=== PATIENT | male | born 1995 | race Caucasian/White ===

== ENCOUNTER 2017-12-19 03:39 | Inpatient (IN) | payer BC ==
[2017-12-19] VITALS (11 sets, daily range): BP systolic 137–164; BP diastolic 74–102; PULSE 92–118; TEMP 36.8–37; O2SAT 94–98; Ht 180.3 cm; Wt 100.0 kg
[~2017-12-19] VITALS: Ht 180.3 cm; Wt 100.0 kg
[2017-12-19] MEDS ORDERED: LORAZEPAM 2 MG/ML 1 ML VIAL IM STA (03:42)
[2017-12-19] MEDS ORDERED: HALOPERIDOL LACTATE 5 MG/ML 1 ML VIAL IM STA (03:42)
[2017-12-19] MEDS ORDERED: HALOPERIDOL LACTATE 5 MG/ML 1 ML VIAL ONE (03:44)
[2017-12-19] MEDS ORDERED: LORAZEPAM 2 MG/ML 1 ML VIAL ONE (03:44)
--- NOTE | 2017-12-19 03:57 | EMERGENCY ROOM VISIT NOTE ---
History Report prepared by Louis: Quinn Wong Under the Supervision of: Dr. Mayra Zavala M.D. First contact with patient: 03:43 Chief Complaint: OVERDOSE (INTENTIONAL) Stated Complaint: DRUNK AND TOOK SLEEPING PILLS History of Present Illness The patient is a 22 year old male who presents to the Emergency Room with complaints of an episode of intentional overdose occurring tonight. Per friends , the patient was brought to the emergency department tonight. They note that the patient became upset tonight and started drinking. They report that the patient took at least 6 shots. They state that the patient then ingested about half of his amitriptyline pills and a small amount of DayQuil. They note that the patient has been saying that he has "wanted to " for the last few weeks. They report that the patient has been talking this way for a while now, but never to this extent. Per EMS, the patient was also bleeding out of his mouth. He states that the friends are unsure if the patient fell tonight. HPI limited secondary to alcohol intoxication. Source of History: friend, EMS History Limited By: intoxication (alcohol intoxication) Onset: tonight Position: other (global) Quality: other (intentional overdose) Timing: other (an episode) Note: Per EMS, the patient is bleeding from his mouth. Review of Systems ROS limited secondary to alcohol intoxication. Past Medical & Surgical Medical Problems: (1) Alcohol dependence (2) Cannabis abuse (3) Generalized anxiety disorder (4) Major depressive disorder (5) No active medical conditions (6) No chronic problems (7) Suicide attempt by other psychotropic drug overdose (8) TCA (tricyclic antidepressant) overdose of undetermined intent Family History No pertinent family history stated. Social History Drug Use: marijuana Marital Status: single Housing Status: lives with roommate Occupation Status: [employer] student Current/Historical Medications No Active Prescriptions or Reported Meds Allergies Coded Allergies: No Known Allergies (Unverified , 12/19/17) Physical Exam Vital Signs Date Time Temp Pulse Resp B/P (MAP) Pulse Ox O2 Delivery O2 Flow Rate FiO2 12/19/17 08:56 102 16 150/85 94 Room Air 12/19/17 07:39 97 Room Air 12/19/17 07:25 118 20 162/68 97 Room Air 12/19/17 06:35 104 18 159/93 95 Room Air 12/19/17 05:53 108 18 158/71 95 Room Air 12/19/17 05:38 113 12/19/17 05:28 153 12/19/17 05:27 163 12/19/17 05:25 148 12/19/17 05:21 169 12/19/17 05:00 36.6 113 18 140/73 90 Room Air 12/19/17 04:43 113 12/19/17 04:24 116 18 132/74 92 Room Air 12/19/17 03:51 138 12/19/17 03:50 95 Room Air 12/19/17 03:48 36.6 152 32 155/83 95 Room Air Physical Exam Vital signs reviewed. General: Well-appearing male, in no significant distress. Significantly intoxicated, thrashing, restrained by security, non-verbal. HEENT: No scleral icterus, PERRLA, neck supple. Atraumatic. Cardiovascular: Regular rhythm and tachycardic, no extra sounds. Pulmonary: Clear to auscultation bilaterally, normal work of breathing. Abdomen: Soft, nontender, nondistended, positive bowel sounds. Musculoskeletal: Atraumatic, no peripheral edema. Neurologic: Patient agitated but non-verbal. He is moving all extremities equally but restrained due to combative behavior. Skin: Warm, dry, no rash Medical Decision & Procedures Laboratory Results 12/19/17 04:05 Red Blood Count 5.57, Mean Corpuscular Volume 84.0, Mean Corpuscular Hemoglobin 29.4, Mean Corpuscular Hemoglobin Concent 35.0, Mean Platelet Volume 9.4, Neutrophils (%) (Auto) 59.9, Lymphocytes (%) (Auto) 29.4, Monocytes (%) (Auto) 5.3, Eosinophils (%) (Auto) 1.7, Basophils (%) (Auto) 1.0, Neutrophils # (Auto) 6.69, Lymphocytes # (Auto) 3.28, Monocytes # (Auto) 0.59, Eosinophils # (Auto) 0.19, Basophils # (Auto) 0.11 Test 12/19/17 04:05 White Blood Count 11.16 K/uL (4.8-10.8) Red Blood Count 5.57 M/uL (4.7-6.1) Hemoglobin 16.4 g/dL (14.0-18.0) Hematocrit 46.8 % (42-52) Mean Corpuscular Volume 84.0 fL (80-100) Mean Corpuscular Hemoglobin 29.4 pg (25-34) Mean Corpuscular Hemoglobin Concent 35.0 g/dl (32-36) Platelet Count 256 K/uL (130-400) Mean Platelet Volume 9.4 fL (7.4-10.4) Neutrophils (%) (Auto) 59.9 % Lymphocytes (%) (Auto) 29.4 % Monocytes (%) (Auto) 5.3 % Eosinophils (%) (Auto) 1.7 % Basophils (%) (Auto) 1.0 % Neutrophils # (Auto) 6.69 K/uL (1.4-6.5) Lymphocytes # (Auto) 3.28 K/uL (1.2-3.4) Monocytes # (Auto) 0.59 K/uL (0.11-0.59) Eosinophils # (Auto) 0.19 K/uL (0-0.5) Basophils # (Auto) 0.11 K/uL (0-0.2) RDW Standard Deviation 38.7 fL (36.4-46.3) RDW Coefficient of Variation 12.9 % (11.5-14.5) Immature Granulocyte % (Auto) 2.7 % Immature Granulocyte # (Auto) 0.30 K/uL (0.00-0.02) Urine Color YELLOW Urine Appearance CLEAR (CLEAR) Urine pH 5.0 (4.5-7.5) Urine Specific Merkel 1.020 (1.000-1.030) Urine Protein NEG (NEG) Urine Glucose (UA) NEG (NEG) Urine Ketones NEG (NEG) Urine Occult Blood 3+ (NEG) Urine Nitrite NEG (NEG) Urine Bilirubin NEG (NEG) Urine Urobilinogen NEG (NEG) Urine Leukocyte Esterase NEG (NEG) Urine WBC (Auto) 1-5 /hpf (0-5) Urine RBC (Auto) >30 /hpf (0-4) Urine Hyaline Casts (Auto) 0 /lpf (0-5) Urine Epithelial Cells (Auto) >30 /lpf (0-5) Urine Bacteria (Auto) NEG (NEG) Urine Renal Epithelial Cells /lpf (0-5) Urine Pathogenic Casts /lpf (0) Direct Bilirubin 0.1 mg/dl (0-0.2) Lipase 157 U/L (73-393) Thyroid Stimulating Hormone (TSH) 3.090 uIu/ml (0.300-4.500) Salicylates Level 1.7 mg/dl (2.8-20) Urine Opiates Screen NEG (NEG) Urine Methadone, Qualitative NEG (NEG) Acetaminophen Level < 2 ug/ml (10-30) Urine Barbiturates NEG (NEG) Urine Phencyclidine (PCP) Level NEG (NEG) Ur Amphetamine/Methamphetamine NEG (NEG) MDMA (Ecstasy) Screen NEG (NEG) Urine Benzodiazepines Screen NEG (NEG) Urine Cocaine Metabolite NEG (NEG) Urine Marijuana (THC) POS (NEG) Ethyl Alcohol mg/dL 102.0 mg/dl (0-3) Laboratory results per my review. Medications Administered Medications (Trade) Dose Ordered Sig/Cristian Route Start Time Stop Time Status Last Admin Dose Admin Haloperidol Lactate (Haldol Inj) 10 mg NOW STAT IM 12/19/17 03:42 12/19/17 03:44 DC 12/19/17 03:43 10 MG Lorazepam (Ativan Inj) 2 mg NOW STAT IM 12/19/17 03:42 12/19/17 03:44 DC 12/19/17 03:43 2 MG Sodium Chloride 1,000 ml @ 999 mls/hr Q1H1M STAT IV 12/19/17 03:58 12/19/17 04:58 DC 12/19/17 03:58 999 MLS/HR ECG Per My Interpretation Indication: toxicologic Rate (beats per minute): 122 Rhythm: sinus tachycardia Findings: no ectopy, other (Poor quality baseline for interpretation, QTC 456) Change: EKG #2: Sinus tachycardia, 150, short FL, QTC 537, poor quality baseline for interpretation, no ectopy. ED Course 0342: Ativan Inj 2mg IM, Haldol Inj 10mg IM 0344: Past medical records reviewed. The patient was evaluated in room B3. A complete history and physical examination was performed. 0358: Sodium Chloride 1000 ml @ 999 mls/hr IV 0535: I called out for poison control. 0621: I spoke to the patient's family. Per mom, the patient is reportedly on Ativan and sertraline. 0700: Upon reevaluation, the patient is resting comfortably. I discussed laboratory and radiographic results with his family. They verbalized agreement of the treatment plan. Discussed the patient's case with MULU Pugh. The patient will be evaluated for further management and care. Medical Decision Differential diagnosis: Etiologies such as mood disorder, infection, hypoglycemia, electrolyte abnormalities, cardiac sources, intracerebral event, toxicologic, neurologic, as well as others were entertained. This pt was evaluated and appeared to be aggressive, combative and restrained by security. He was non-verbal, but not cooperative. He was sedated with IM haldol and ativan. Restraints were applied. Friends arrived in the ED and stated that the pt had a night of drinking, became upset about a situation earlier today with a [employer] committee. He ran into his room and locked the door. Later friends discovered he had taken "half a bottle of amitriptyline." IVF were initiated. Poison control was contacted. Initial EKG reveals no acute abnl. Second EKG reveals a prolonged QT interval, but QRS remains narrow. Parents arrived and case was discussed. Mother was tearful. The hospitalist service was contacted. A 302 petition was filed by me, until the pt can be evaluated by . Medication Reconcilliation Current Medication List: was personally reviewed by me Blood Pressure Screening Patient's blood pressure: Elevated blood pressure Blood pressure disposition: Elevated BP felt to be situational Consults Time Called: 0641 Consulting Physician: MUUL Pugh Returned Call: 0700 I reviewed the patient's case with Dr. To. She will evaluate the patient for further management. Impression Primary Impression: TCA (tricyclic antidepressant) overdose of undetermined intent Additional Impression: Alcohol intoxication Critical Care I have personally spent greater than 35 minutes of critical care time in the direct management of this patient. This includes bedside care, interpretation of diagnostic studies, and testing, discussion with consultants, patient, and family members, and other required patient management activities. This 35 minutes is in excess of all separately billable procedures. Scribe Attestation The scribe's documentation has been prepared under my direction and personally reviewed by me in its entirety. I confirm that the note above accurately reflects all work, treatment, procedures, and medical decision making performed by me. Departure Information Dispostion Being Evaluated By Hospitalist Prescriptions No Active Prescriptions or Reported Meds Referrals No Doctor, Assigned (PCP) Patient Instructions [facility] Problem Qualifiers
[2017-12-19] MEDS ORDERED: SODIUM CHLORIDE 0.9% 1000ML 1,000 ML IV STA (03:58)
[2017-12-19 04:14] LABS: BASO ABS # 0.11 K/uL (0-0.2); EOS % 1.7 %; EOS ABS # 0.19 K/uL (0-0.5); HEMATOCRIT 46.8 % (42-52); HEMOGLOBIN 16.4 g/dL (14.0-18.0); LYMPH % 29.4 %; LYMPH ABS # 3.28 K/uL (1.2-3.4); MEAN CORPUSCULAR HEMOGLOBIN 29.4 pg (25-34); MEAN PLATELET VOLUME 9.4 fL (7.4-10.4); MONO % 5.3 %; MONO ABS # 0.59 K/uL (0.11-0.59); NEUT % 59.9 %; NEUT ABS # 6.69 K/uL (1.4-6.5); PLATELET COUNT 256 K/uL (130-400); RED CELL DISTRIBUTION WIDTH CV 12.9 % (11.5-14.5); RED CELL DISTRIBUTION WIDTH SD 38.7 fL (36.4-46.3); WHITE BLOOD COUNT 11.16 K/uL (4.8-10.8)
[2017-12-19 04:55] LABS: ALBUMIN 4.7 gm/dl (3.4-5.0); CALCIUM 8.7 mg/dl (8.5-10.1); CREATININE 1.14 mg/dl (0.60-1.40); POTASSIUM 3.3 mmol/L (3.5-5.1)
[2017-12-19 05:07] LABS: TOTAL PROTEIN 8.7 gm/dl (6.4-8.2)
[2017-12-19] MEDS ORDERED: LORAZEPAM 2 MG/ML 1 ML VIAL IV PRN (08:30)
[2017-12-19] MEDS ORDERED: SODIUM CHLOR 0.45% + 20MEQ KCL 1,000 ML IV SCH (08:30)
[2017-12-19] MEDS ORDERED: ICU PROTOCOL FOR HYPERGLYCEMIA PRN (08:45)
--- NOTE | 2017-12-19 09:46 | Critical Care Consultation ---
Critical Care Consultation Date of Consultation: Dec 19, 2017. Attending Physician: Bernarda Rivas MD Reason for Consultation: TCA overdose, QTC greater than 500 History of Present Illness Primary history is obtained from the patient, additional history from medical record, hospitalist, emergency room records and mother at the bedside. Patient is a 22-year-old male with a history of depressive disorder with previous history of overdose with intent to harm himself approximately 1 year ago by ingesting Benadryl who presents to the emergency department tonight after an episode of alcohol intoxication and subsequent intentional overdose of taking approximately 10 tablets of 25 mg amitriptyline at approximately 2300 yesterday. Emergency department records indicate the patient took at least 6 alcoholic drinks a small amount of DayQuil. Reportedly the patient has wanted to for the past couple of weeks. What was reported to me as the patient was not seen at a green party for several hours and his friends became concerned when they attempted to find him, he be he was verbalizing that he wanted to hurt himself and they brought him for further evaluation. During my evaluation the patient was alert and oriented to self location and time. Was able to clearly state that he has been feeling depressed, was intoxicated last night, has had a previous overdose incident. Additional mental health history as he is currently seen by [facility] psychologist has not been admitted for mental health conditions previously and does not have access to firearms. This was confirmed with his mother at the bedside. 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, currently sophomore) Allergies Coded Allergies: No Known Allergies (Unverified , 12/19/17) Home Medications No Active Prescriptions or Reported Meds Current Inpatient Medications Current Inpatient Medications Medications (Trade) Dose Ordered Sig/Cristian Route Start Time Stop Time Status Last Admin Dose Admin Potassium Chloride/Sodium Chloride 1,000 ml @ 100 mls/hr Q10H IV 12/19/17 08:30 01/18/18 08:29 Lorazepam (Ativan Inj) 1 mg Q4H PRN IV 12/19/17 08:30 01/18/18 08:29 UNV Heparin Sodium (Porcine) (Heparin Sq 5000 Unit/0.5ml) 5,000 unit Q12H SQ 12/19/17 08:45 01/18/18 08:44 UNV Miscellaneous Information (Icu Protocol For Hyperglycemia) 1 ea PRN PRN N/A 12/19/17 08:45 12/21/17 08:44 UNV Review of Systems A 10 point review of systems has been obtained and is otherwise negative. Respiratory: No cough, No sputum, No wheezing, No shortness of breath, No dyspnea on exertion, No dyspnea at rest, No hemoptysis, No problem reported Cardiovascular: No chest pain, No orthopnea, No PND, No edema, No claudication , No palpitations, No problem reported Psychiatric: + depression symptoms, + substance abuse (Recent alcohol use, occasional marijuana abuse denies IV drug use), + problem reported (Previous intentional drug overdose with Benadryl), No anxiety Physical Exam Date Time Temp Pulse Resp B/P (MAP) Pulse Ox O2 Delivery O2 Flow Rate FiO2 12/19/17 08:56 102 16 150/85 94 Room Air 12/19/17 07:39 97 Room Air 12/19/17 07:25 118 20 162/68 97 Room Air 12/19/17 06:35 104 18 159/93 95 Room Air 12/19/17 05:53 108 18 158/71 95 Room Air 12/19/17 05:38 113 12/19/17 05:28 153 12/19/17 05:27 163 12/19/17 05:25 148 12/19/17 05:21 169 12/19/17 05:00 36.6 113 18 140/73 90 Room Air 12/19/17 04:43 113 12/19/17 04:24 116 18 132/74 92 Room Air 12/19/17 03:51 138 12/19/17 03:50 95 Room Air 12/19/17 03:48 36.6 152 32 155/83 95 Room Air General Appearance: WD/WN, no apparent distress Head: normocephalic, atraumatic Eyes: PERRLA, no discharge ENT: normal nasal exam, normal throat exam Neck: normal range of motion, no tenderness, trachea midline, no stridor, supple, no thyromegaly Respiratory: breath sounds normal, clear to auscultation, clear to percussion, no respiratory distress Cardiovasular: normal S1S2, no M/G/R, no JVD, irregular rate (Tachycardia) Abdomen: non tender, normal bowel sounds Back: normal inspection Upper Extremities: no edema Lower Extremities: no edema Laboratory Results Last 24 Hours Test 12/19/17 04:05 White Blood Count 11.16 K/uL Red Blood Count 5.57 M/uL Hemoglobin 16.4 g/dL Hematocrit 46.8 % Mean Corpuscular Volume 84.0 fL Mean Corpuscular Hemoglobin 29.4 pg Mean Corpuscular Hemoglobin Concent 35.0 g/dl Platelet Count 256 K/uL Mean Platelet Volume 9.4 fL Neutrophils (%) (Auto) 59.9 % Lymphocytes (%) (Auto) 29.4 % Monocytes (%) (Auto) 5.3 % Eosinophils (%) (Auto) 1.7 % Basophils (%) (Auto) 1.0 % Neutrophils # (Auto) 6.69 K/uL Lymphocytes # (Auto) 3.28 K/uL Monocytes # (Auto) 0.59 K/uL Eosinophils # (Auto) 0.19 K/uL Basophils # (Auto) 0.11 K/uL RDW Standard Deviation 38.7 fL RDW Coefficient of Variation 12.9 % Immature Granulocyte % (Auto) 2.7 % Immature Granulocyte # (Auto) 0.30 K/uL Urine Color YELLOW Urine Appearance CLEAR Urine pH 5.0 Urine Specific Waka 1.020 Urine Protein NEG Urine Glucose (UA) NEG Urine Ketones NEG Urine Occult Blood 3+ Urine Nitrite NEG Urine Bilirubin NEG Urine Urobilinogen NEG Urine Leukocyte Esterase NEG Urine WBC (Auto) 1-5 /hpf Urine RBC (Auto) >30 /hpf Urine Hyaline Casts (Auto) 0 /lpf Urine Epithelial Cells (Auto) >30 /lpf Urine Bacteria (Auto) NEG Urine Renal Epithelial Cells /lpf Urine Pathogenic Casts /lpf Sodium Level 138 mmol/L Potassium Level 3.3 mmol/L Chloride Level 103 mmol/L Carbon Dioxide Level 16 mmol/L Anion Gap 19.0 mmol/L Blood Urea Nitrogen 11 mg/dl Creatinine 1.14 mg/dl Est Creatinine Clear Calc Drug Dose 124.5 ml/min Estimated GFR () 106.7 Estimated GFR (Non- 92.1 BUN/Creatinine Ratio 9.6 Random Glucose 168 mg/dl Calcium Level 8.7 mg/dl Magnesium Level 2.3 mg/dl Total Bilirubin 0.6 mg/dl Direct Bilirubin 0.1 mg/dl Aspartate Amino Transf (AST/SGOT) 35 U/L Alanine Aminotransferase (ALT/SGPT) 42 U/L Alkaline Phosphatase 87 U/L Total Creatine Kinase 288 U/L Total Protein 8.7 gm/dl Albumin 4.7 gm/dl Lipase 157 U/L Thyroid Stimulating Hormone (TSH) 3.090 uIu/ml Salicylates Level 1.7 mg/dl Urine Opiates Screen NEG Urine Methadone, Qualitative NEG Acetaminophen Level < 2 ug/ml Urine Barbiturates NEG Urine Phencyclidine (PCP) Level NEG Ur Amphetamine/Methamphetamine NEG MDMA (Ecstasy) Screen NEG Urine Benzodiazepines Screen NEG Urine Cocaine Metabolite NEG Urine Marijuana (THC) POS Ethyl Alcohol mg/dL 102.0 mg/dl Assessment & Plan Impression: #1 acute alcohol intoxication #2 marijuana use #3 Elevated anion gap #4 intentional drug overdose #5 prolonged QTC Plan: #1 repeat comprehensive metabolic panel including mag and phosphorus -If still has elevated anion gap and acidotic will send osmolality to exclude toxic alcohol ingestion, I think this is unlikely #2 Repeat CPK, evaluation for possible rhabdomyolysis, again I think this is unlikely #3 Repeat EKG does not demonstrate prolonged QTC, nor widening of the QRS complex #4 Observation under telemetry #5 Anticipate medical stability later today, no longer clinically intoxicated, will likely be voluntary admission with psychiatry #6 Psychiatry consult
[2017-12-19 10:37] LABS: ALBUMIN 4.1 gm/dl (3.4-5.0); CALCIUM 8.4 mg/dl (8.5-10.1); CREATININE 0.98 mg/dl (0.60-1.40); POTASSIUM 4.2 mmol/L (3.5-5.1)
[2017-12-19] MEDS: LACTATED RINGER'S 1000ML 1,000 ML IV SCH ×2 (10:40→12:03)
[2017-12-19 10:41] LABS: TOTAL PROTEIN 7.7 gm/dl (6.4-8.2)
[2017-12-19] MEDS ORDERED: HEPARIN SOD 5000 UNIT/0.5 ML CARP SQ SCH (11:00)
--- NOTE | 2017-12-19 12:00 | DIAGNOSTIC IMAGING REPORT ---
CT OF THE HEAD WITHOUT CONTRAST CLINICAL HISTORY: Recent trauma. Altered level of consciousness. COMPARISON STUDY: No previous studies for comparison. CT DOSE: 1084.37 mGycm TECHNIQUE: Helical axial images of the head were obtained without IV contrast. Automated exposure control was utilized for the study. A dose lowering technique was utilized adhering to the principles of ALARA. FINDINGS: No acute intracranial hemorrhage, midline shift or mass effect is present. Ventricular system is normal. The basilar cisterns are patent. There are no extra-axial fluid collections. Denny-white differentiation is maintained. There are no findings to suggest acute dural sinus thrombosis or acute territorial infarct. A CSF density left retrocerebellar focus either reflects a tash cisterna magna or arachnoid cyst. This is of no clinical significance. There are no calvarial fractures. Visualized portions of the sinuses and mastoid air cells are clear. IMPRESSION: 1. No acute intracranial findings. 2. No calvarial fracture. 3. Left retrocerebellar CSF density which either reflects a tash cisterna magna or arachnoid cyst and is of no clinical significance. Electronically signed by: Mulugeta Hunter M.D. 12/19/2017 11:59 AM Dictated Date/Time: 12/19/2017 11:53 AM
--- NOTE | 2017-12-19 13:16 | Psychiatric Consultation ---
Consultation Date of Consultation Dec 19, 2017. Identifying Data 22 year old [employer] student, brought to the ED after taking an intentional OD of elavil with alcohol. Is admitted medically. Consulted requested to evaluate depression. Chief Complaint "I was sad. ". History of Present Illness The patient is a 22-year-old [employer] student, currently and [employer] major, who reports that he has been quite sad lately. His primary stressor is the fact that he admits he is sadler and is "still in the closet". He does not want to tell his parents fearing that they would not be supportive because they are Yazidism. Because he has not come out to even his friends, he feels that he does not fit in anywhere, especially when he is hanging out with his male friends. On the day of the overdose, he had been at [employer] and felt that he was not being treated well by his male peers. He then apparently went home to his apartment that he shares with 2 roommates, had at least 6 shots and then took an overdose of Elavil. The chart also indicates that he drank NyQuil. He intended to , but was brought to the emergency department by his friends. He admits that his mood has been quite low, rated 2 out of 10. His sleep has been okay but he has been eating out a lot and over the course of last year his put on 20 pounds. He reports chronic anxiety saying that his mind is racing, always worrying about something but denies panic attacks. He does have a history of hallucinations under the influence of a Benadryl overdose in the past. His PCP believes he is overly sensitive to it. He does admit to having made 2 suicide attempts in the past, neither of which resulted in an inpatient mental health stay. He denies problems with anger management. He denies self- injurious behaviors. He denies any history of eating disorder behaviors. He denies any episodes of mood elevation, sleeplessness of pleasure seeking behaviors that would be congruent with a bipolar disorder. Past Psychiatric History Current OP Treatment: no current treatment Prior OP Treatment: no prior treatment Prior Psych Hospitalizations: none Access to a Gun: No Past Medication Trials 2 by overdose, never came to inpatient treatment Past Medical/Surgical History History of Concussion/Seizure: No (1) No active medical conditions Allergies Allergies: Coded Allergies: No Known Allergies (Unverified , 3/30/18) Home Medications No Active Prescriptions or Reported Meds Family History History of Suicide: No History of Substance Abuse: No Psychiatric History: No Alcohol Use Alcohol Use In Past 12 Months: Yes Reports that he drinks 3 times per week, varying amounts. Denies he has ever had any legal consequences to his drinking. Smoking Use Smoking Status: Never Smoker Substance History Smokes marijuana about every other day. Denies other illegal substances Personal History Lives in: No active medical conditions [facility] with 2 roommates. Childhood: Grew up in [place]. Raised by both parents. Mother is a clinical laboratory aides teacher, father owns a furniture store. Has 2 siblings Education: started college (Started as an engineering major and did not do well. Has now changed I[employer], doing better and enjoys it. Is a sophomore) Work History: Works at [email or web address] part-time Relationship History: never (Identifies as sadler. Has had one same-sex relationship in the past.) Children: None Spiritual Affiliation: Raised Yazidism Legal History: none Psychological Trauma History: Denies Hx Traumatic Event Review of Systems Constitutional: malaise Eyes: reports: blurred vision ENT: reports: other Cardiovascular: denies: no symptoms reported, see HPI, chest pain, chest tightness, chest pressure, diaphoresis, palpitations, syncope, other Respiratory: denies: no symptoms reported, see HPI, cough, orthopnea, short of breath, stridor, wheezing, sputum production, cyanosis, ROMERO, PND, other Gastrointestinal: denies no symptoms reported, denies see HPI, denies abdominal pain, denies constipation, denies diarrhea, denies nausea, denies vomiting, denies other Genitourinary - Male: denies: no symptoms, see HPI, rash, amenorrhea, penile itching, penile discharge, testicular pain, testicular swelling, impotence, other Musculoskeletal: denies no symptoms reported, denies see HPI, denies back pain , denies gout, denies joint pain, denies joint swelling, denies muscle pain, denies muscle stiffness, denies neck pain, denies other Integumentary: denies no symptoms reported, denies see HPI, denies change in color, denies change in hair/nails, denies dryness, denies lesions, denies lumps , denies rash, denies other Neurologic: denies: no symptoms, see HPI, headache, numbness, paresthesias, pre -existing deficit, seizure, tingling, tremors, general weakness, tics, focal weakness, vertigo, lethargy, memory loss, dizziness, other Endocrine: denies: no symptoms, as stated in HPI, cold intolerance, heat intolerance, hair changes, goiter, polydipsia, polyuria, skin changes, other Hematologic / Lymphatic: denies: no symptoms, as stated in HPI, abnormal clotting, adenopathy, anemia, easy bleeding, easy bruising, gums bleeding, petechiae, other Examination Vital Signs Vital Signs Past 12 Hours Date Time Temp Pulse Resp B/P (MAP) Pulse Ox O2 Delivery O2 Flow Rate FiO2 12/19/17 12:00 Room Air 12/19/17 12:00 36.8 112 16 157/97 (117) 97 Room Air 12/19/17 11:00 100 14 155/90 (111) 96 Room Air 12/19/17 10:01 36.8 108 16 137/74 (95) 96 Room Air 12/19/17 09:00 118 12 151/78 (102) 97 Room Air 12/19/17 08:56 102 16 150/85 94 Room Air 12/19/17 07:39 97 Room Air 12/19/17 07:25 118 20 162/68 97 Room Air 12/19/17 06:35 104 18 159/93 95 Room Air 12/19/17 05:53 108 18 158/71 95 Room Air 12/19/17 05:38 113 12/19/17 05:28 153 12/19/17 05:27 163 12/19/17 05:25 148 12/19/17 05:21 169 12/19/17 05:00 36.6 113 18 140/73 90 Room Air 12/19/17 04:43 113 12/19/17 04:24 116 18 132/74 92 Room Air 12/19/17 03:51 138 12/19/17 03:50 95 Room Air 12/19/17 03:48 36.6 152 32 155/83 95 Room Air Laboratory Results Last 24 Hours Test 12/19/17 04:05 12/19/17 09:57 White Blood Count 11.16 K/uL Red Blood Count 5.57 M/uL Hemoglobin 16.4 g/dL Hematocrit 46.8 % Mean Corpuscular Volume 84.0 fL Mean Corpuscular Hemoglobin 29.4 pg Mean Corpuscular Hemoglobin Concent 35.0 g/dl Platelet Count 256 K/uL Mean Platelet Volume 9.4 fL Neutrophils (%) (Auto) 59.9 % Lymphocytes (%) (Auto) 29.4 % Monocytes (%) (Auto) 5.3 % Eosinophils (%) (Auto) 1.7 % Basophils (%) (Auto) 1.0 % Neutrophils # (Auto) 6.69 K/uL Lymphocytes # (Auto) 3.28 K/uL Monocytes # (Auto) 0.59 K/uL Eosinophils # (Auto) 0.19 K/uL Basophils # (Auto) 0.11 K/uL RDW Standard Deviation 38.7 fL RDW Coefficient of Variation 12.9 % Immature Granulocyte % (Auto) 2.7 % Immature Granulocyte # (Auto) 0.30 K/uL Urine Color YELLOW Urine Appearance CLEAR Urine pH 5.0 Urine Specific [place]yer 1.020 Urine Protein NEG Urine Glucose (UA) NEG Urine Ketones NEG Urine Occult Blood 3+ Urine Nitrite NEG Urine Bilirubin NEG Urine Urobilinogen NEG Urine Leukocyte Esterase NEG Urine WBC (Auto) 1-5 /hpf Urine RBC (Auto) >30 /hpf Urine Hyaline Casts (Auto) 0 /lpf Urine Epithelial Cells (Auto) >30 /lpf Urine Bacteria (Auto) NEG Urine Renal Epithelial Cells /lpf Urine Pathogenic Casts /lpf Sodium Level 138 mmol/L 136 mmol/L Potassium Level 3.3 mmol/L 4.2 mmol/L Chloride Level 103 mmol/L 105 mmol/L Carbon Dioxide Level 16 mmol/L 22 mmol/L Anion Gap 19.0 mmol/L 9.0 mmol/L Blood Urea Nitrogen 11 mg/dl 10 mg/dl Creatinine 1.14 mg/dl 0.98 mg/dl Est Creatinine Clear Calc Drug Dose 124.5 ml/min 144.8 ml/min Estimated GFR () 106.7 128.1 Estimated GFR (Non- 92.1 110.5 BUN/Creatinine Ratio 9.6 9.9 Random Glucose 168 mg/dl 119 mg/dl Calcium Level 8.7 mg/dl 8.4 mg/dl Magnesium Level 2.3 mg/dl 1.9 mg/dl Total Bilirubin 0.6 mg/dl 0.6 mg/dl Direct Bilirubin 0.1 mg/dl Aspartate Amino Transf (AST/SGOT) 35 U/L 39 U/L Alanine Aminotransferase (ALT/SGPT) 42 U/L 39 U/L Alkaline Phosphatase 87 U/L 74 U/L Total Creatine Kinase 288 U/L 990 U/L Total Protein 8.7 gm/dl 7.7 gm/dl Albumin 4.7 gm/dl 4.1 gm/dl Lipase 157 U/L Thyroid Stimulating Hormone (TSH) 3.090 uIu/ml Salicylates Level 1.7 mg/dl Urine Opiates Screen NEG Urine Methadone, Qualitative NEG Acetaminophen Level < 2 ug/ml Urine Barbiturates NEG Urine Phencyclidine (PCP) Level NEG Ur Amphetamine/Methamphetamine NEG MDMA (Ecstasy) Screen NEG Urine Benzodiazepines Screen NEG Urine Cocaine Metabolite NEG Urine Marijuana (THC) POS Ethyl Alcohol mg/dL 102.0 mg/dl Prothrombin Time 10.9 SECONDS Prothromb Time International Ratio 1.0 Venous Blood pH 7.41 Venous Blood Partial Pressure CO2 41 mmHg Venous Blood Partial Pressure O2 60 mmHg Venous Blood HCO3 25 mmol/L Venous Blood Oxygen Saturation 90.3 % Venous Blood Base Excess 0.1 mEq/L Globulin 3.6 gm/dl Albumin/Globulin Ratio 1.1 Mental Examination During interview pt is: alert and oriented, cooperative Appearance: disheveled Eye contact is: good Motor behavior is: no abnormal motor movements Speech: other (slowed, slightly garbled) Affect: mood congruent, depressed, flat Mood is: depressed Thought process: goal directed Thought content: reality based without delusions Suicidal thought are: present, Plan: present (OD), Intent: present (attempt yesterday) Homicidal thoughts are: denied Hallucinations: denies auditory, denies visual Cognition: memory grossly intact, language grossly intact Intelligence estimated to be: average Insight: impaired Judgement: impaired Impression / Recommendations Impression 22-year-old [employer] [facility] student admitted medically following an intentional overdose in a suicide attempt. The primary problem underlying his depression is the fact that he identifies as sadler and has not told anyone including his friends and parents. He is finding it increasingly difficult to carry that secret. He has been depressed enough in the past to attempt suicide twice but has never come to psychiatric treatment and so at this time I am recommending inpatient mental health treatment which at this moment he is agreeable to. If he changes his mind and refuses a voluntary admission, he should be 302 and not allowed to leave the hospital. I see that he had only one prolonged QTC on EKGs and it is now normalizing. We will await medical clearance prior to determining where he should receive his treatment. I have guaranteed him that no one to will tell his mother of his sexual identity and less it something that he wants to happen. Will hold on any recommendations for antidepressants until transferred for psychiatric treatment. Inventory Assets Strengths: Likes school, supportive family Needs: To learn additional coping strategies Risk Factors Assessment Male: Yes : Yes /single/: Yes Higher / Fall in social status: No Access to guns: No Health problems: No Mental Health Diagnoses: Yes Substance use disorders: No Previous attempt: Yes Previous attempt;highly lethal: No Hopelessness: Yes Smoker: No Protective Factors Assessment Muslim beliefs: Yes : No Responsible for young children: No Employed: Yes Supportive family: Yes Recommendations (1) Major depressive disorder 12/19 -Recommend inpatient mental health treatment when medically cleared - currently patient willing to receive that treatment voluntarily however if for any reason he changes his mind, he is committable and should be held for 302. Dr. Jovanna nicholson has personally been involved in the review of this case and development of these recommendations.
--- NOTE | 2017-12-19 14:43 | Discharge Instructions ---
Discharge Instructions Date of Service Dec 19, 2017. Admission Reason for Admission: TCA overdose Discharge Discharge Diagnosis / Problem: TCA overdose/ingestion,Suicidal attempt Discharge Goals Goal(s): Improve disease control, Diagnostic testing, Therapeutic intervention Activity Recommendations Activity Limitations: resume your previous activity . Instructions / Follow-Up Instructions / Follow-Up Please follow up routinely with your PCP after discharge. Current Hospital Diet Patient's current hospital diet: Regular Diet Discharge Diet Recommended Diet: Regular Diet Procedures Procedures Performed: CT Head Pending Studies Studies pending at discharge: no Medical Emergencies . Who to Call and When: Medical Emergencies: If at any time you feel your situation is an emergency, please call 911 immediately. . Non-Emergent Contact Non-Emergency issues call your: Primary Care Provider . . "Provider Documentation" section prepared by Bernarda Rivas. .
--- NOTE | 2017-12-19 18:36 | Psych Management Progress Note ---
Psychiatry Miscellaneous Date of Service: Dec 19, 2017. crew caller psychiatry note: Informed by nursing staff that patient is medically cleared for admission to the [facility], but concerns over increasing BP, HR and CK. Spoke with Dr. Rivas who thinks anxiety playing a role in elevated pulse and BP. Patient off IVFs and taking PO. STAT CK ordered to ensure not markedly elevated, and transfer postponed pending results.
--- NOTE | 2017-12-20 00:09 | History and Physical ---
History & Physical Date & Time of Service: Dec 19, 2017 at 08:24 Chief Complaint: Drunk And Took Sleeping Pills Primary Care Physician: No Doctor, Assigned History of Present Illness Source: patient, family, hospital records This patient is a 22-year-old male with a past medical history of depression and anxiety not currently on treatment, who presented after being found by his roommates to be intoxicated by drinking 6 shots of liquor and admitting to ingestion of amitriptyline pills. Upon arrival in the ER, he was quite agitated and combative and received 2 mg of IV Ativan and 10 mg of IM Haldol. He was then quite sedated and was unable to give me much history when I initially saw him. 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 His second ECG showed a prolonged QTC of 537, and he was hypokalemic in the ER. He had sinus tachycardia. He was given IV fluids and was sleeping when I saw him. He did stir a little bit when I was examining him , but did not wake up. Approximately 45 minutes later when I saw the patient again with the grocery store clerk, the patient was awake and was able to answer questions clearly. He reports he took 10 pills of the 25 mg amitriptyline tablets at around 11 PM the previous night. He reports that he did it intentionally and that he has a history of taking an ingestion of Benadryl for which she did not seek treatment. He has never had a psychiatric inpatient stay. His mother had reported that he was started on sertraline and Ativan never had any follow-up with a psychiatrist after that. He stopped taking those medications about 6 months ago. 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 This is when his depressive symptoms began. He has since changed majors, and his mother and sister thought he was at her. The patient denied other drug use except for marijuana. 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) Immunizations Other Immunizations: Mom reports that he is up-to-date on all of his childhood vaccinations prior to entering college Allergies Coded Allergies: No Known Allergies (Unverified , 12/19/17) Home Medications No Active Prescriptions or Reported Meds Review of Systems ROS unobtainable due to altered mental status at the time of interview Physical Exam Vital Signs Date Time Temp Pulse Resp B/P (MAP) Pulse Ox O2 Delivery O2 Flow Rate FiO2 12/19/17 07:39 97 Room Air 12/19/17 07:25 118 20 162/68 97 Room Air 12/19/17 06:35 104 18 159/93 95 Room Air 12/19/17 05:53 108 18 158/71 95 Room Air 12/19/17 05:38 113 12/19/17 05:28 153 12/19/17 05:27 163 12/19/17 05:25 148 12/19/17 05:21 169 12/19/17 05:00 36.6 113 18 140/73 90 Room Air 12/19/17 04:43 113 12/19/17 04:24 116 18 132/74 92 Room Air 12/19/17 03:51 138 12/19/17 03:50 95 Room Air 12/19/17 03:48 36.6 152 32 155/83 95 Room Air General Appearance: WD/WN, no apparent distress (Lying in a prone position sleeping initially, then later was awake and sitting up, but drifted off to sleep frequently) Head: normocephalic, atraumatic Eyes: normal inspection, PERRL, EOMI, sclerae normal ENT: hearing grossly normal, pharynx normal, + pertinent finding (Had some dried emesis on his chin and the front of his chest) Neck: supple, no adenopathy, trachea midline Respiratory/Chest: lungs clear, normal breath sounds, no respiratory distress, no accessory muscle use Cardiovascular: no edema, no gallop, no murmur, normal peripheral pulses, + tachycardia (Mild with regular rhythm) Abdomen/GI: normal bowel sounds, non tender, soft, no organomegaly Back: normal inspection Extremities/Musculoskelatal: normal inspection, no pedal edema Neurologic/Psych: no motor/sensory deficits, + depressed affect, + pertinent finding (Initially very drowsy, later was more awake and answering questions appropriately) Skin: normal color, warm/dry, no rash Lymphatic: no adenopathy Diagnostics Laboratory Results Results Past 24 Hours Test 12/19/17 04:05 12/19/17 08:02 Range/Units White Blood Count 11.16 4.8-10.8 K/uL Red Blood Count 5.57 4.7-6.1 M/uL Hemoglobin 16.4 14.0-18.0 g/dL Hematocrit 46.8 42-52 % Mean Corpuscular Volume 84.0 80-100 fL Mean Corpuscular Hemoglobin 29.4 25-34 pg Mean Corpuscular Hemoglobin Concent 35.0 32-36 g/dl Platelet Count 256 130-400 K/uL Mean Platelet Volume 9.4 7.4-10.4 fL Neutrophils (%) (Auto) 59.9 % Lymphocytes (%) (Auto) 29.4 % Monocytes (%) (Auto) 5.3 % Eosinophils (%) (Auto) 1.7 % Basophils (%) (Auto) 1.0 % Neutrophils # (Auto) 6.69 1.4-6.5 K/uL Lymphocytes # (Auto) 3.28 1.2-3.4 K/uL Monocytes # (Auto) 0.59 0.11-0.59 K/uL Eosinophils # (Auto) 0.19 0-0.5 K/uL Basophils # (Auto) 0.11 0-0.2 K/uL RDW Standard Deviation 38.7 36.4-46.3 fL RDW Coefficient of Variation 12.9 11.5-14.5 % Immature Granulocyte % (Auto) 2.7 % Immature Granulocyte # (Auto) 0.30 0.00-0.02 K/uL Urine Color YELLOW Urine Appearance CLEAR CLEAR Urine pH 5.0 4.5-7.5 Urine Specific [place] 1.020 1.000-1.030 Urine Protein NEG NEG Urine Glucose (UA) NEG NEG Urine Ketones NEG NEG Urine Occult Blood 3+ NEG Urine Nitrite NEG NEG Urine Bilirubin NEG NEG Urine Urobilinogen NEG NEG Urine Leukocyte Esterase NEG NEG Urine WBC (Auto) 1-5 0-5 /hpf Urine RBC (Auto) >30 0-4 /hpf Urine Hyaline Casts (Auto) 0 0-5 /lpf Urine Epithelial Cells (Auto) >30 0-5 /lpf Urine Bacteria (Auto) NEG NEG Urine Renal Epithelial Cells 0-5 /lpf Urine Pathogenic Casts 0 /lpf Sodium Level 138 136-145 mmol/L Potassium Level 3.3 3.5-5.1 mmol/L Chloride Level 103 98-107 mmol/L Carbon Dioxide Level 16 21-32 mmol/L Anion Gap 19.0 3-11 mmol/L Blood Urea Nitrogen 11 7-18 mg/dl Creatinine 1.14 0.60-1.40 mg/dl Est Creatinine Clear Calc Drug Dose 124.5 ml/min Estimated GFR () 106.7 Estimated GFR (Non- 92.1 BUN/Creatinine Ratio 9.6 10-20 Random Glucose 168 70-99 mg/dl Calcium Level 8.7 8.5-10.1 mg/dl Magnesium Level 2.3 1.8-2.4 mg/dl Total Bilirubin 0.6 0.2-1 mg/dl Direct Bilirubin 0.1 0-0.2 mg/dl Aspartate Amino Transf (AST/SGOT) 35 15-37 U/L Alanine Aminotransferase (ALT/SGPT) 42 12-78 U/L Alkaline Phosphatase 87 45-117 U/L Total Protein 8.7 6.4-8.2 gm/dl Albumin 4.7 3.4-5.0 gm/dl Lipase 157 73-393 U/L Thyroid Stimulating Hormone (TSH) 3.090 0.300-4.500 uIu/ml Salicylates Level 1.7 2.8-20 mg/dl Urine Opiates Screen NEG NEG Urine Methadone, Qualitative NEG NEG Acetaminophen Level < 2 10-30 ug/ml Urine Barbiturates NEG NEG Urine Phencyclidine (PCP) Level NEG NEG Ur Amphetamine/Methamphetamine NEG NEG MDMA (Ecstasy) Screen NEG NEG Urine Benzodiazepines Screen NEG NEG Urine Cocaine Metabolite NEG NEG Urine Marijuana (THC) POS NEG Ethyl Alcohol mg/dL 102.0 0-3 mg/dl EKG ECG #1-sinus tachycardia, QTc 456 ECG #2-sinus tachycardia, QTc 537, nonspecific ST and T-wave changes ECG #3-sinus tachycardia, QTc 464, nonspecific ST and T-wave changes ECG #4-sinus tachycardia, rate 124, QTc 453 Impression Assessment and Plan This patient is a 22-year-old male with a history of depression and anxiety, here with suicide attempt by TCA ingestion along with alcohol intoxication. Found to have prolonged QTC on ECG, hypokalemia, metabolic acidosis, and sinus tachycardia. Patient weighs 100 kg, and he took 250 mg of amitriptyline which is actually significantly less than the maximum dose for his weight with this medication. He was then given Haldol in the ER which may be contributing to his prolonged QT. CPK also mildly elevated on repeat testing at 900 indicating mild rhabdomyolysis. TCA ingestion/overdose/prolonged QTc/suicidal attempt/mild rhabdomyolysis- positive for marijuana on urine drug screen, alcohol level is 102 which is not likely contributing to his current state. Temperature is normal. He is mildly hypertensive and tachycardic. His QRS is not widened and does not require bicarbonate. TSH is normal -Admit to intensive care unit given prolonged QTC although it is already improving -Cardiac monitoring -Replace potassium in IV fluids -Bolus with IV fluids with normal saline -Repeat LFTs, PRP in a few hours to see if anion gap has closed and if LFTs remain normal -Follow serial ECGs -Follow CPK -Consult psychiatry as will need inpatient psychiatric stay after medical clearance -Appreciate grocery store clerk consultation and management Prophylaxis-SCDs, heparin SQ Full code Case discussed extensively with his mother and sister at the bedside Critical care spent was 45 minutes including coordination of care with specialist, review of his laboratories and ECGs, and physical exam Advanced Directives Existing Living Will: No Existing Power of Chief Of Field Operations: No Resuscitation Status VTE Prophylaxis Will order VTE Prophylaxis: Yes Note Total Time: Critical Care 30 - 74 minutes Additional Copies To [facility]
--- NOTE | 2017-12-20 00:24 | Discharge Summary ---
Discharge Summary Date of Service Dec 20, 2017. Discharge Summary Admission Date: Dec 19, 2017 at 08:56 Discharge Date: Dec 19, 2017 Discharge Disposition: Acute care mental health Principal Diagnosis: TCA overdose/ingestion, suicidal attempt Problems/Secondary Diagnoses: Mild rhabdomyolysis Sinus tachycardia QTc prolongation Metabolic acidosis Elevated blood pressure without diagnosis of hypertension Hypokalemia Procedures: None Consultations: Critical care medicine Psychiatry Medication Reconciliation Medication Profile: No Active Prescriptions or Reported Meds Discharge Exam Patient was awake and alert, mentally clear at the time of discharge. He was voluntarily committing himself for inpatient psychiatric treatment. He denied any pain, no chest pain or shortness of breath, no abdominal pain, he was tolerating p.o. His sinus tachycardia had resolved. His QTC was back to normal. I discussed the case with the drier operator who also felt that the patient was medically cleared for discharge. Review of Systems: Constitutional: No problem reported Eyes: No problem reported ENT: No problem reported Respiratory: No problem reported Abdomen: No problem reported Musculoskeletal: No problem reported Genitourinary - Male: No problem reported Neurologic: No problem reported Psychiatric: + depression symptoms, + anxiety Endocrine: No problem reported Hematologic / Lymphatic: No problem reported Integumentary: No problem reported Physical Exam: General Appearance: WD/WN, no apparent distress Eyes: normal inspection, PERRL, EOMI, sclerae normal ENT: normal ENT inspection, hearing grossly normal, pharynx normal Neck: supple, trachea midline Respiratory/Chest: lungs clear, normal breath sounds, no respiratory distress, no accessory muscle use Cardiovascular: regular rate, rhythm, no edema, no gallop, no murmur, normal peripheral pulses Abdomen / GI: normal bowel sounds, non tender, soft, no organomegaly Extremities: normal inspection, no calf tenderness, normal capillary refill , no pedal edema, normal range of motion Neurologic/Psychiatric: kettle skimmer II-XII nml as tested, no motor/sensory deficits , alert, oriented x 3, + depressed affect Skin: normal color, warm/dry, no rash, + pertinent finding (A few minor abrasions scattered across his legs bilaterally with no bleeding, very superficial) Lymphatic: no adenopathy Hospital Course This patient is a 22-year-old male with a history of depression and anxiety, here with suicide attempt by TCA ingestion along with alcohol intoxication. Found to have prolonged QTC on ECG, hypokalemia, metabolic acidosis, and sinus tachycardia. Patient weighs 100 kg, and he took 250 mg of amitriptyline which is actually significantly less than the maximum dose for his weight with this medication. He was then given Haldol in the ER which may be contributing to his prolonged QT. CPK also mildly elevated on repeat testing at 900 indicating mild rhabdomyolysis. TCA ingestion/overdose/prolonged QTc/suicidal attempt/mild rhabdomyolysis-he ingested 250 mg of amitriptyline along with 6 shots of liquor. His urine drug screen was positive for marijuana and his alcohol level was 102 which was not likely contributing to his current state. Temperature is normal. He was mildly hypertensive and tachycardic on admission which then resolved after aggressive IV fluids. His QRS is not widened and does not require bicarbonate. TSH is normal His repeat laboratory studies showed normal potassium, resolution of metabolic acidosis, and normal renal function. LFTs were normal. CPK was slightly increased again to 1600 and was likely secondary to his combativeness and agitation upon admission to the ER as evidenced by mild abrasions on his lower extremities. -He had no significant events on telemetry monitoring and his QT had normalized on ECG He was awake and alert and tolerating p.o. He was agreeable to inpatient psychiatric stay. He was stable for discharge Total Time Spent: Greater than 30 minutes This includes examination of the patient, discharge planning, medication reconciliation, and communication with other providers. Discharge Instructions Please refer to the electronic Patient Visit Report (Discharge Instructions) for additional information. Follow-Up With PCP and psychiatry Additional Copies To [facility]
== END 2017-12-19 19:10 | DRG 918 ==
LOC: C.EDB 03:43 → ENRESERV 08:46 → C.MSICU 08:56
PROVIDERS: ADMIT Internal Medicine Sports Medicine; ATTEND Internal Medicine Sports Medicine
DX: T43.012A Poisoning by tricyclic antidepressants, intentional self-harm, initial encounter (principal); R45.851 Suicidal ideations; M62.82 Rhabdomyolysis; F41.1 Generalized anxiety disorder; F32.9 Major depressive disorder, single episode, unspecified

== ENCOUNTER 2017-12-19 19:45 | Inpatient (IN) | payer BC ==
[~2017-12-19] VITALS: Ht 180.3 cm; Wt 92.9 kg
[2017-12-19] MEDS ORDERED: MAGNESIUM HYDROXIDE SUSP 30 ML UDC PO PRN (20:00)
[2017-12-19] MEDS ORDERED: ALUMINUM/MAGNESIUM SUSP 30 ML UDC PO PRN (20:00)
[2017-12-19] MEDS ORDERED: ACETAMINOPHEN 325 MG TAB PO PRN (20:00)
[2017-12-19] MEDS ORDERED: hydrOXYzine HCL 25 MG TAB PO PRN (20:00)
[2017-12-19] MEDS ORDERED: BISMUTH SUBSALICYLATE PER ML OMNICELL CHARGE PO PRN (20:00)
[2017-12-19] MEDS ORDERED: SODIUM CHLORIDE 0.65% NA SOLN 45 ML (OCEAN) PRN (20:00)
[2017-12-19 20:12] VITALS: BP 176/106; PULSE 112; TEMP 36.6; Ht 180.3 cm; Wt 92.9 kg
[2017-12-19] MEDS ORDERED: LORAZEPAM 1 MG TAB PO PRN (21:00)
[2017-12-20] VITALS (7 sets, daily range): BP systolic 163–179; BP diastolic 100–128; PULSE 92–128; TEMP 36.2–36.7
[2017-12-20] MEDS ORDERED: LORAZEPAM 1 MG TAB PO PRN (10:00)
--- NOTE | 2017-12-20 10:36 | Psychiatric History & Physical ---
History Date of Service Dec 20, 2017. Identifying Data Sravani Garcia is a 22-year-old male [employer] student from [place] who was admitted on Dec 19, 2017 at 19:45 for depression and a suicide attempt by overdose on Elavil, alcohol, and NyQuil. He was initially admitted to the ICU, and transferred to our unit voluntarily. Chief Complaint "I'm just not used to this kind of thing". History of Present Illness Chart reviewed; patient presented to the emergency room 12/19/2017 after he told his friends that he had overdosed on amitriptyline and cough medication, per 1 note DayQuil and per another note NyQuil. He had also been drinking alcohol, at least 6 shots. His friends told hospital staff the patient had been stating that he wanted to for the last few weeks. EMS reported that he was bleeding from his mouth, and it was unclear if he had fallen. He was intoxicated on presentation, with a BAL of 102, and UDS was positive for marijuana. He was admitted to the ICU, and admitted that he had taken 10 tablets of 25 mg amitriptyline at approximately 11 PM the day prior. His mother was at the bedside and confirmed that he had been seen at [facility] by a psychologist, had no previous inpatient psychiatric hospitalizations, and has no access to firearms. He received IV fluids in the ICU, was noted to be tachycardic and hypertensive. He had an elevated anion gap and prolonged QTc. CPK was followed due to concerns for rhabdomyolysis, and increased to [address] was performed and showed no acute injuries. He was seen by the psychiatric consult service yesterday, and admitted that he had attempted suicide with his overdose. His primary stressor is his sexuality, stated he was not sure if he was homosexual or bisexual, and has not come out to anyone yet, fearing that his family will not be supportive. He continued to endorse depressed mood and suicidal thoughts, and admitted to history of 2 suicide attempts by overdose, most recently overdosing on NyQuil in November 2016. He also admitted to an increase in his alcohol intake, drinking 10 drinks 3-4 times a week. He reports being treated for depression by his PCP, and says the Elavil he overdosed on was prescribed by his PCP. He was medically cleared last evening and transferred to the behavioral health unit voluntarily. On my assessment, he reviews the events that led to his overdose, stating he had been dealing with several stressors, including finding out that a position he got on a [employer] committee was shared with someone else, which was a disappointment, and his roommates and friends making derogatory statements about him, which he states is not unusual, feeling they often make fun of him and it hurts him. There is a larger underlying stressor of his sexuality, as he identifies as sadler, but has not felt comfortable coming out to people as he fears being judged. He actually had a same sex relationship earlier in the year , but ended it when his boyfriend wanted to make the relationship public, as he did not feel ready for that. He is able to identify his primary concern, which is that people in his home town of [place] what refer to his family is "the one with the sadler son," and also concerns about his parents as they are Shinto. He does not really have anyone that he can talk to openly about this , although he has started coming out to some of his friends and the response has been positive. The night of his overdose, he had invited people over "to get drunk," and then was thinking about his stressors and became overwhelmed. He impulsively took the amitriptyline OD, 10 tabs, with intent to , noting that he had read about tricyclic OD and knew that it could be lethal. He wrote a suicide note, but doesn't recall what it said or what exactly happened after the OD that caused his friends to become concerned. He thinks they brought him to the ER themselves, and his only communication with them was a text apologizing. He denies changes in appetite, but has been eating out a lot and has gained 20 pounds in the past year. He endorses depressed mood, states it has been worsening for months and is the worst it's ever been, rates mood a 2 out of 10. Endorses decreased interest, low energy and motivation, and has had occasional thoughts of wishing he would . He has not been sleeping enough, staying up late playing on his computer, and doesn't feel rested during the day. He reports chronic anxiety with racing thoughts, constant worry, and has always been a worrier. Denies symptoms of panic (other than 1 episode last year) , PTSD, and OCD. He denies symptoms of cintia and psychosis, other than an episode of hallucinations while under the influence of a Benadryl overdose in the past. He admits he has been using MJ and alcohol excessively and recognizes that he should not drink, stating people have told him he "gets crazy and shouldn't drink." He also notes cannabis use interferes with motivation and focus. Past Psychiatric History Current OP Treatment: no current treatment (PCP prescribed antidepressants) Prior OP Treatment: no prior treatment Prior Psych Hospitalizations: none Access to a Gun: No Suicide Attempts: Yes (2 previous overdoses, which he did not seek treatment for. 3 overdoses total, counting tricyclic overdose which led to this admission.) Past Medication Trials sertraline - worked for a while, then pt stopped it as felt better escitalopram - ineffective, doesn't recall dose, maybe 10mg amitriptyline - started by Dr. Sierra for sleep Past Medical/Surgical History History of Concussion/Seizure: No (1) TCA (tricyclic antidepressant) overdose of undetermined intent (2) Suicide attempt by other psychotropic drug overdose (3) No chronic problems PCP is Dr. Sy in [place] Allergies Allergies: Coded Allergies: No Known Allergies (Unverified , 12/19/17) Home Medications No Active Prescriptions or Reported Meds Family History History of Suicide: No History of Substance Abuse: No Psychiatric History: Yes (paternal cousin with bipolar) Alcohol Use Alcohol Use In Past 12 Months: Yes (10 drinks, 3 times a week, last use on the day of admission. Denies legal consequences to drinking. He is having alcohol withdrawal symptoms.) AUDIT Total Score: 29 Smoking Use Smoking Status: Never Smoker Substance History Smokes marijuana every other day. Denies other drug use. Personal History Lives in: Lives in an apartment in [place] with 3 roommates. Childhood: Grew up in [place]. Raised by both parents. Mother is a visiting teacher, and father owns a furniture store. Has 2 siblings. Older sister is a grad student at [employer]. Education: started college (Sophomore [employer] majoring in [employer] [place]. Started as an engineering major, but did not do well, so changed his major.) Work History: Works part-time at [employer]. Relationship History: never (Identifies as homosexual, and has had one same sex relationship in the past, but has not told most people, including family.) Children: None Spiritual Affiliation: Raised Shinto Legal History: none Psychological Trauma History: Denies Hx Traumatic Event Review of Systems 10 systems reviewed, had some SOB when anxious, but otherwise negative except as stated above. Examination Physical Examination A physical exam was performed in the ER and on the medical floor prior to admission to the unit. I accept those physicals as correct/medical clearance for the inpatient physical exam. Vital Signs Vital Signs Past 12 Hours Date Time Temp Pulse Resp B/P (MAP) Pulse Ox O2 Delivery O2 Flow Rate FiO2 12/20/17 09:23 36.5 103 18 179/109 12/20/17 06:49 36.6 112 16 169/102 92 163/109 Laboratory Results Last 24 Hours Test 12/20/17 06:39 Total Creatine Kinase 1619 U/L Mental Examination During interview pt is: alert and oriented, cooperative Appearance: appropriately dressed, appropriately groomed Eye contact is: good Motor behavior is: steady gait & station, no abnormal motor movements Speech: normal in rate, rhythm & volume Affect: mood congruent, depressed, anxious Mood is: depressed, anxious Thought process: goal directed Thought content: reality based without delusions Suicidal thought are: denied (But admits to a suicide attempt by tricyclic and alcohol overdose prior to admission) Homicidal thoughts are: denied Hallucinations: denies auditory, denies visual Cognition: memory grossly intact (Except for events while intoxicated), attention grossly intact, language grossly intact Intelligence estimated to be: consistent with level of education Insight: fair Judgement: fair Impression / Recommendations Impression 22-year-old male [employer] student from [place] who presented after a suicide attempt by overdose on 250 mg of amitriptyline, at least 6 shots of alcohol, and cold medication. He has been diagnosed with depression and treated by his PCP, but has no mental health providers. He identifies his primary stressor as his sexuality, which he has not been able to discuss with his friends or family. He is admitted voluntarily, and is demonstrating symptoms of alcohol withdrawal and hypertension. He requires inpatient treatment due to the severity of symptoms and continuing high risk for suicide if discharged. Inventory Assets Strengths: supportive family, willing for treatment Needs: medication for depression and anxiety, OP care, family meeting/safety plan. Risk Factors Assessment Male: Yes : Yes /single/: Yes Higher / Fall in social status: No Access to guns: No (Not at school, but parents own guns) Health problems: Yes Mental Health Diagnoses: Yes Substance use disorders: Yes Previous attempt: Yes Previous attempt; didn't tell: Yes Family history of suicide: No Previous psychiatric stay: No Smoker: No Protective Factors Assessment Orthodoxy beliefs: No : No Responsible for young children: No Employed: Yes Supportive family: Yes Recommendations (1) Suicide attempt by other psychotropic drug overdose 12/20 -QTc normalized, and CPK coming down. Encourage fluids. Attend groups and work on a discharge safety plan. Would not recommend he have access to large amounts of medications, medications that are dangerous in overdose, or guns due to the risk of suicide. (2) Major depressive disorder 12/20 -Psychoeducation provided about diagnosis and treatment recommendations, including antidepressant and therapy. Sertraline was helpful in the past, and he is willing to resume it. Start 25 mg daily today, and increase to 50 mg daily tomorrow. -He will need to be referred for outpatient mental health treatment. Family meeting with parents, although patient does not want to disclose his sexuality to them. -Amitriptyline discontinued due to overdose and lethality in overdose. Should explore whether this medication is still present in his apartment, and if so insurance disposed of prior to discharge. (3) Generalized anxiety disorder 12/20 -discussed diagnosis and treatment recommendations, including antidepressant medication and therapy. Start sertraline as above. Patient found Lorazepam 1 mg helpful, and we will place him on a brief taper here to address both anxiety and alcohol withdrawal, but advised that this would not be a good medication to take after leaving the hospital due to his addictions issues, and he expressed understanding. (4) Alcohol dependence 12/20 -scored on AWSS this morning, with elevated blood pressure. We will continue to treat withdrawal, and consider the need to consult the hospitalist regarding persistently elevated blood pressure, as patient notes his father was diagnosed with hypertension at a young age and started on medication. -The patient's AUDIT score suggests problematic drinking (Zone III WHO). Brief intervention was offered and accepted . Intervention was greater than 5 min in length. Brief interventions include: 1. Assess Readiness to Quit, 2. Advise: Help Patient to Reduce or Abstain from Alcohol, 3. Agree: Set Specific, Feasible Goals, 4. Assist: Anticipate barriers, Problem-Solving Solutions. Social work to 5. Arrange: Referrals to appropriate treatment. Summary of intervention: The patient is in contemplation stage with regards to transtheoretical model of change. The patient is advised to decrease alcohol consumption due to depressant effects and risk of interactions with prescription medications. The patient agreed to abstain and will be provided with recovery materials to continue to education self on how to cope with their condition without drinking. -Refer for outpatient follow-up with a therapist and psychiatrist to address both mental health issues and substance use disorders. (5) Cannabis abuse 12/20 -reviewed risks of ongoing cannabis use and recommendations for abstinence. Refer for outpatient treatment as above. CPT Code Initial Hospital Care: 49238 Problem Qualifiers (1) Major depressive disorder: Major depression recurrence: recurrent
[2017-12-20] MEDS ORDERED: SERTRALINE HCL 50 MG TAB PO ONE (13:15)
[2017-12-20] MEDS ORDERED: LORAZEPAM 1 MG TAB PO ONE ×2 (14:27→19:00)
[2017-12-20] MEDS ORDERED: NURSING VERBAL MED ORDER ONE (18:30)
[2017-12-20] MEDS ORDERED: CHLORDIAZEPOXIDE 25 MG CAP PO ONE (19:00)
[2017-12-20] MEDS ORDERED: THIAMINE HCL 100 MG TAB PO ONE (19:18)
[2017-12-20] MEDS ORDERED: CHLORDIAZEPOXIDE 25 MG CAP PO SCH (19:30)
[2017-12-20] MEDS ORDERED: CLONIDINE HCL 0.1 MG TAB PO ONE (19:45)
--- NOTE | 2017-12-20 19:58 | Medical Consult ---
Consultation Date of Consultation: Dec 20, 2017. Attending Physician: Ana Lilia Tim MD Reason for Consultation: Hypertension, tachycardia History of Present Illness This patient is a 22-year-old male with a history of depression and anxiety whom I know from admission and discharged yesterday for a TCA intentional overdose and suicide attempt. He was medically cleared by myself yesterday for discharge after his prolonged QT had normalized, his sinus tachycardia had improved with IV fluids, and he was doing well. Today on the mental health unit , his blood pressure and heart rate have trended upward. The most recent blood pressure was recorded as 178/128. He has been tachycardic in the low 100s- 110s. An ECG showed a sinus tachycardia but was otherwise normal. The patient reports that he is just extremely anxious with being on the mental health unit as he has never been through anything like this before. Of note, his parents were present during the interview and examination. His mother was very anxious and asked multiple questions which seem to annoy the patient. He has no history of hypertension. As it turns out, he drinks a lot more alcohol than he admitted to yesterday with me. He admits to drinking at least 10 drinks sometimes more about 3 or 4 times per week. He states in the past he is gone for more than a week without drinking and has never had any issues. In fact, he is completely asymptomatic at this time other than feeling anxious. He denies headache or visual changes, denies nausea or vomiting, denies chest pain or shortness of breath, denies abdominal pain. The only thing he has noticed since yesterday is some tingling and numbness in his bilateral thumbs. His left hand and distal forearm are also little bit swollen from where his IV site was yesterday. Past Medical/Surgical History PMH: Depression and anxiety PSH: None Family History Father-HTN, HL Mother-hypothyroidism Maternal grandfather-pancreatic cancer Sister-healthy Maternal aunt-major depressive disorder Social History Smoking Status: Never Smoker Smokeless Tobacco Use: No Alcohol Use: heavy (10-12 drinks 3-4 times per week for at least the last 6 months, a mixture of beer or wine and liquor) Drug Use: marijuana Marital Status: single Housing Status: lives with roommate Occupation Status: [employer] student (Majoring in [employer]) Allergies Coded Allergies: No Known Allergies (Unverified , 12/19/17) Home Medications Amitriptyline 25-50 mg p.o. nightly as needed Current Inpatient Medications Current Inpatient Medications Medications (Trade) Dose Ordered Sig/Cristian Route Start Time Stop Time Status Last Admin Dose Admin Acetaminophen (Tylenol Tab) 650 mg Q4H PRN PO 12/19/17 20:00 01/18/18 19:59 Bismuth Subsalicylate (Kaopectate Liqd) 15 ml PRN PRN PO 12/19/17 20:00 01/18/18 19:59 Al Hydroxide/Mg Hydroxide (Maalox Susp) 30 ml Q4H PRN PO 12/19/17 20:00 01/18/18 19:59 Magnesium Hydroxide (Milk Of Magnesia Susp) 30 ml DAILY PRN PO 12/19/17 20:00 01/18/18 19:59 Sodium Chloride ([place] Nasal [place]) PRN PRN NA 12/19/17 20:00 01/18/18 19:59 Hydroxyzine HCl (Vistaril Tab) 50 mg HSZ PRN PO 12/19/17 20:00 01/18/18 19:59 Hydroxyzine HCl (Vistaril Tab) 25 mg Q4H PRN PO 12/19/17 20:00 01/18/18 19:59 Lorazepam (Ativan Tab) PRN Dosing -Active Protocol UD PRN PO 12/20/17 10:00 01/19/18 09:59 12/20/17 16:16 1 MG Lorazepam (Ativan Tab) 1 mg BID PO 12/20/17 22:00 12/23/17 21:59 Sertraline HCl (Zoloft Tab) 50 mg QAM PO 12/21/17 09:00 01/20/18 08:59 Chlordiazepoxide (Librium Cap) 25 mg SEE PROTOCOL TEXT PO 12/20/17 19:30 01/19/18 19:29 UNV Review of Systems Constitutional: No fatigue, No problem reported Eyes: No worsening of vision ENT: No problem reported Respiratory: No shortness of breath Cardiovascular: No chest pain, No palpitations Abdomen: No pain, No nausea, No vomiting, No diarrhea, No constipation Musculoskeletal: + swelling (Left hand from previous IV site), No joint pain, No muscle pain, No calf pain Genitourinary - Male: No problem reported Neurologic: + numbness/tingling (Bilateral thumbs 1 day) Psychiatric: + depression symptoms, + anhedonism, + anxiety, + insomnia, + substance abuse Endocrine: No problem reported Hematologic / Lymphatic: No problem reported Integumentary: No rash Allergic / Immunologic: No problem reported Physical Exam Date Time Temp Pulse Resp B/P (MAP) Pulse Ox O2 Delivery O2 Flow Rate FiO2 12/20/17 17:42 105 18 178/128 12/20/17 16:04 36.7 128 16 174/108 12/20/17 14:50 36.6 117 20 171/102 12/20/17 11:05 36.4 98 20 165/100 12/20/17 09:23 36.5 103 18 179/109 12/20/17 06:49 36.6 112 16 169/102 92 163/109 12/19/17 20:12 36.6 112 16 176/106 General Appearance: WD/WN, no apparent distress Head: normocephalic, atraumatic Eyes: normal inspection, PERRL, EOMI, sclerae normal ENT: hearing grossly normal, pharynx normal Neck: supple, no adenopathy, thyroid normal, trachea midline Respiratory/Chest: lungs clear, normal breath sounds, no respiratory distress, no accessory muscle use Cardiovascular: no edema, no gallop, no murmur, + tachycardia (With regular rhythm) Abdomen/GI: normal bowel sounds, non tender, soft, no organomegaly, no pulsatile mass Back: normal inspection Extremities/Musculoskelatal: no calf tenderness, normal capillary refill, no pedal edema, normal range of motion, + swelling (Mild 1+ nonpitting edema in the left hand and wrist, negative Tinel's and Phalen's signs of the wrists, decreased sensation to light touch in the bilateral thumbs and index fingers) Neurologic/Psych: alert, oriented x 3 Skin: normal color, warm/dry, no rash Lymphatic: no adenopathy Laboratory Results Last 24 Hours Test 12/20/17 06:39 Total Creatine Kinase 1619 U/L ECG-sinus tachycardia, normal QTC, no ischemic changes Assessment & Plan This patient is a 22-year-old male admitted and medically cleared yesterday for a TCA overdose and suicide attempt. Admitted to the mental health unit with major depressive disorder, generalized anxiety disorder, found to have tachycardia and hypertension worsening over the last 24 hours. Elevated blood pressure/sinus tachycardia-blood pressures as high as 178/128, sinus tachycardia in the low 100s-110s. I believe this is secondary to a combination of alcohol withdrawal, as well as significant anxiety. I do not believe this is related to his previous TCA overdose. -Psychiatry is treating his anxiety with sertraline, counseling -AWSS protocol already ordered by psychiatry with as needed Ativan ordered -Start Librium taper over the next 5 days -Give clonidine 0.1 mg p.o. 1 now and then twice daily as needed for blood pressure greater than 170/110 -Encouraged patient to drink plenty of fluids -If blood pressure and tachycardia are not improving with Librium, Ativan, and clonidine, would have to admit him to the medical service and provide IV antihypertensives Left hand swelling secondary to infiltration of previous IV site/bilateral mild carpal tunnel syndrome-all likely related to large amounts of IV fluids and local edema -Should resolve on its own -Encouraged elevation of the left forearm above the heart when possible -Avoid flexion of the wrist -If not improving over the next few days, consider bilateral wrist splints Prophylaxis-ambulation Disposition-remains on mental health unit Thank you for this consultation; we will continue to follow daily.
[2017-12-20] MEDS: CHLORDIAZEPOXIDE 25MG 1ST DOSE PO SCH (20:26)
[2017-12-20] MEDS: hydrOXYzine HCL 25 MG TAB PO PRN (22:09)
[2017-12-20] MEDS: LORAZEPAM 1 MG TAB PO SCH (22:09)
[2017-12-21] VITALS (8 sets, daily range): BP systolic 142–163; BP diastolic 88–115; PULSE 82–114; TEMP 36.3–36.7
[2017-12-21] MEDS: CHLORDIAZEPOXIDE 25MG 1ST DOSE PO SCH ×3 (02:00→13:28)
[2017-12-21] MEDS ORDERED: CLONIDINE HCL 0.1 MG TAB PO PRN (08:00)
--- NOTE | 2017-12-21 08:00 | Psychiatric Progress Notes ---
Progress Note Date of Service Dec 21, 2017. Interval History Sravani Garcia is a 22-year-old male [employer] student from [place] who was admitted on Dec 19, 2017 at 19:45 for depression and a suicide attempt by overdose on Elavil, alcohol, and NyQuil. He was initially admitted to the ICU on 12/19/17, and transferred to our unit voluntarily later that same day. A medical consult was requested due to elevated BP and pulse, and he was started on a Librium taper and clonidine. Chief Complaint "Pretty good". Subjective Patient was seen & assessed interval progress reviewed with Nursing. Staff report his parents visited for much of the day yesterday, and had a meeting with the sr. social media & mobile manager. His parents reported that he has been having difficulties with his roommates at college, that he tends to be a "people pleaser," and is very sensitive. They also stated that he has been using alcohol and marijuana regularly. His mother stated that his sister found a suicide note in his room. They were aware of some of his stressors, including his position on the [employer] committee, and his mother also stated that she believed he was struggling with his sexuality, and they did not know how to deal with it. When the patient entered the meeting, he avoided eye contact with his parents, and appeared very anxious. He had previously told the sr. social media & mobile manager he did not want to discuss his sexuality with his parents and did not feel they would be supportive, so it was not discussed during the meeting. He agreed to have contact with his roommates during his stay, and agreed to contact with the university. Hospitalist consult was requested as his blood pressure continued to increase, with a maximum reading of 178/128 yesterday, and pulse up to 128. He denied symptoms of alcohol withdrawal other than anxiety, and was started on the Librium taper, clonidine, with a plan that if these things were not effective, he may need to be transferred back to the medical floor for IV antihypertensives. On my assessment today, he states he is feeling a bit better, but is still very anxious. He denies that he felt more anxious when his family was visiting yesterday, and believes they are coming back to visit today, but was open to the idea of asking them to avoid visiting during group time. He denies suicidal thoughts, and was able to discuss how to develop a discharge safety plan. We also discussed his social situation and supports outside of the hospital, as he notes 1 of his stressors as difficulty with friends. He relates this back to an experience he had in high school, where he was texting with a friend whom he believed to be sadler, but later found out his friend was only playing along in order to take screen shots of their conversation and show it to all of his other friends, who then did not want to be friends with him anymore. He says he felt traumatized by this for years, and it now plays into his interactions with his friends in college, as he worries that they will make fun of him or try to trick him. He notes that some of his friends are not very supportive or nice, and would like to branch out and find ways to meet new friends. He is considering getting involved in more activities next semester, and is also willing to consider going to an LGBT support group. one of the things that has prevented him from going is that he worries it will trigger his own anxiety, noting that when he was seen Dr. Sierra he would talk about gait couple's getting in a very matter of fact way, which aroused a lot of anxiety in the patient, he thinks because "it was too real." He says he is not entirely sure of his sexuality, as he has "always dreamed of getting and having a family with a woman, but now I think I am leaning more in the other direction." He remains unwilling to discuss this with his parents, but was not surprised to hear that they suspected he was having issues regarding sexuality, as he says Dr. Sierra spoke to them at one point and "just kept talking about his sadler sons," which made his mother suspicious. He denies suicidal thoughts and feels safe in the hospital, but is unable to discuss how he would manage returning to his stressors at this time, it is easily overwhelmed and talking about them. Sleep Information Total Hours of Sleep: 7.25 Meal Information Percent of Breakfast Consumed: 100 Percent of Lunch Consumed: 100 Percent of Dinner Consumed: 100 Mental Status Exam During interview pt is: alert and oriented, cooperative Appearance: appropriately dressed, appropriately groomed Eye contact is: good Motor behavior is: steady gait & station, no abnormal motor movements Speech: normal in rate, rhythm & volume Affect: mood congruent, anxious, constricted Mood is: other ("Okay, better.") Thought process: goal directed Thought content: reality based without delusions Suicidal thought are: denied (But admits to a suicide attempt by tricyclic and alcohol overdose prior to admission) Homicidal thoughts are: denied Hallucinations: denies auditory, denies visual Cognition: memory grossly intact (Except for events while intoxicated), attention grossly intact, language grossly intact Intelligence estimated to be: consistent with level of education Insight: fair Judgement: fair Impression 22-year-old male [employer] student from [place] who presented after a suicide attempt by overdose on 250 mg of amitriptyline, at least 6 shots of alcohol, and cold medication. He has been diagnosed with depression and treated by his PCP, but has no mental health providers. He identifies his primary stressor as his sexuality, which he has not been able to discuss with his friends or family. He is admitted voluntarily, and is demonstrating symptoms of alcohol withdrawal and hypertension. He requires inpatient treatment due to the severity of symptoms and continuing high risk for suicide if discharged. Plan (1) Suicide attempt by other psychotropic drug overdose 12/20 -QTc normalized, and CPK coming down. Encourage fluids. Attend groups and work on a discharge safety plan. Would not recommend he have access to large amounts of medications, medications that are dangerous in overdose, or guns due to the risk of suicide. 12/21 -parents confirm no access to guns. Discussed charge safety plan, and encouraged him to start working on this. (2) Major depressive disorder 12/20 -Psychoeducation provided about diagnosis and treatment recommendations, including antidepressant and therapy. Sertraline was helpful in the past, and he is willing to resume it. Start 25 mg daily today, and increase to 50 mg daily tomorrow. -He will need to be referred for outpatient mental health treatment. Family meeting with parents, although patient does not want to disclose his sexuality to them. -Amitriptyline discontinued due to overdose and lethality in overdose. Should explore whether this medication is still present in his apartment, and if so ensure it is disposed of prior to discharge. 12/21 -Sertraline increased to 50 mg daily. -Family meeting held with parents yesterday. -Explore ways to increase supports locally. Encouraged him to consider attending an LGBT support group on campus, and he is thinking about ways to make new friends. -Continue to attend groups and work on healthy coping skills. Refer for outpatient follow-up with a psychiatrist and therapist. (3) Generalized anxiety disorder 12/20 -discussed diagnosis and treatment recommendations, including antidepressant medication and therapy. Start sertraline as above. Patient found Lorazepam 1 mg helpful, and we will place him on a brief taper here to address both anxiety and alcohol withdrawal, but advised that this would not be a good medication to take after leaving the hospital due to his addictions issues, and he expressed understanding. (4) Alcohol dependence 12/20 -scored on AWSS this morning, with elevated blood pressure. We will continue to treat withdrawal, and consider the need to consult the hospitalist regarding persistently elevated blood pressure, as patient notes his father was diagnosed with hypertension at a young age and started on medication. -The patient's AUDIT score suggests problematic drinking (Zone III WHO). Brief intervention was offered and accepted . Intervention was greater than 5 min in length. Brief interventions include: 1. Assess Readiness to Quit, 2. Advise: Help Patient to Reduce or Abstain from Alcohol, 3. Agree: Set Specific, Feasible Goals, 4. Assist: Anticipate barriers, Problem-Solving Solutions. Social work to 5. Arrange: Referrals to appropriate treatment. Summary of intervention: The patient is in contemplation stage with regards to transtheoretical model of change. The patient is advised to decrease alcohol consumption due to depressant effects and risk of interactions with prescription medications. The patient agreed to abstain and will be provided with recovery materials to continue to education self on how to cope with their condition without drinking. -Refer for outpatient follow-up with a therapist and psychiatrist to address both mental health issues and substance use disorders. 12/21 -appreciate Dr. Rivas's recommendations, was started on clonidine and chlordiazepoxide taper yesterday for severe hypertension and tachycardia thought possibly related to withdrawal. Cannot rule out underlying hypertension. (5) Cannabis abuse 12/20 -reviewed risks of ongoing cannabis use and recommendations for abstinence. Refer for outpatient treatment as above. Discharge / Aftercare Planning Primary Care Physician: Name: LIZ Therapist: Name: n/a Child Care Aide: Name: n/a Visit Code E&M Code: 87656 Inventory Assets Strengths: supportive family, willing for treatment Needs: medication for depression and anxiety, OP care, family meeting/safety plan. Risk Factors Assessment Male: Yes : Yes /single/: Yes Higher / Fall in social status: No Health problems: Yes Mental Health Diagnoses: Yes Substance use disorders: Yes Previous attempt: Yes Previous attempt; didn't tell: Yes Family history of suicide: No Previous psychiatric stay: No Smoker: No Protective Factors Assessment Denominational beliefs: No : No Responsible for young children: No Employed: Yes Supportive family: Yes Data Vital Signs Last 24 Hrs: Date Time Temp Pulse Resp B/P (MAP) Pulse Ox O2 Delivery O2 Flow Rate FiO2 12/21/17 06:50 36.3 96 18 142/88 (106) 82 145/104 (118) 12/20/17 20:28 36.2 115 16 176/105 12/20/17 17:42 105 18 178/128 12/20/17 16:04 36.7 128 16 174/108 12/20/17 14:50 36.6 117 20 171/102 12/20/17 11:05 36.4 98 20 165/100 12/20/17 09:23 36.5 103 18 179/109 Meds Administered Last 24 Hrs: Meds Administered (Past 24Hrs) Medications (Trade) Dose Ordered Sig/Cristian Route Start Time Stop Time Status Last Admin Dose Admin Hydroxyzine HCl (Vistaril Tab) 50 mg HSZ PRN PO 12/19/17 20:00 01/18/18 19:59 12/20/17 22:09 50 MG Lorazepam (Ativan Tab) 1 mg ONE PRN PO 12/19/17 21:00 12/20/17 09:37 DC 12/20/17 09:37 1 MG Lorazepam (Ativan Tab) PRN Dosing -Active Protocol UD PRN PO 12/20/17 10:00 01/19/18 09:59 12/20/17 16:16 1 MG Lorazepam (Ativan Tab) 1 mg BID PO 12/20/17 22:00 12/23/17 21:59 12/20/17 22:09 1 MG Sertraline HCl (Zoloft Tab) 25 mg NOW ONCE PO 12/20/17 13:15 12/20/17 13:20 DC 12/20/17 14:49 25 MG Lorazepam (Ativan Tab) 1 mg 1427 ONCE PO 12/20/17 14:27 12/20/17 14:38 DC 12/20/17 14:49 1 MG Chlordiazepoxide (Librium Cap) 25 mg NOW ONCE PO 12/20/17 19:00 12/20/17 19:01 DC 12/20/17 19:07 25 MG Lorazepam (Ativan Tab) 1 mg NOW ONCE PO 12/20/17 19:00 12/20/17 19:01 DC 12/20/17 19:07 1 MG Thiamine HCl (Vitamin B-1 Tab) 100 mg 1917 ONCE PO 12/20/17 19:18 12/20/17 19:27 DC 12/20/17 20:25 100 MG Folic Acid (Folvite Tab) 1 mg 1917 ONCE PO 12/20/17 19:18 12/20/17 19:27 DC 12/20/17 20:25 1 MG Chlordiazepoxide (Librium Cap) 25 mg Q6H PO 12/20/17 20:00 12/21/17 14:01 12/20/17 20:26 25 MG Clonidine HCl (Catapres Tab) 0.1 mg NOW ONCE PO 12/20/17 19:45 12/20/17 19:52 DC 12/20/17 20:30 0.1 MG Problem Qualifiers (1) Major depressive disorder: Major depression recurrence: recurrent
[2017-12-21] MEDS: THIAMINE HCL 100 MG TAB PO SCH (08:17)
[2017-12-21] MEDS: CEROVITE ADV FORMULA TAB PO SCH (08:17)
[2017-12-21] MEDS: LORAZEPAM 1 MG TAB PO SCH ×2 (08:18→22:27)
[2017-12-21] MEDS: SERTRALINE HCL 50 MG TAB PO SCH (08:19)
[2017-12-21] MEDS ORDERED: NURSING VERBAL MED ORDER ONE (13:45)
[2017-12-21] MEDS ORDERED: CLONIDINE HCL 0.1 MG TAB PO STA (13:46)
[2017-12-21] MEDS: hydrOXYzine HCL 25 MG TAB PO PRN (23:34)
[2017-12-22] VITALS (8 sets, daily range): BP systolic 123–146; BP diastolic 79–100; PULSE 84–105; TEMP 36.4–36.7
[2017-12-22] MEDS: CHLORDIAZEPOXIDE 25MG Q8H DOSE PO SCH ×3 (00:43→17:20)
[2017-12-22] MEDS: LORAZEPAM 1 MG TAB PO SCH (07:45)
[2017-12-22] MEDS: SERTRALINE HCL 50 MG TAB PO SCH (07:46)
[2017-12-22] MEDS: THIAMINE HCL 100 MG TAB PO SCH (07:46)
[2017-12-22] MEDS: CEROVITE ADV FORMULA TAB PO SCH (07:46)
--- NOTE | 2017-12-22 08:44 | Psychiatric Progress Notes ---
Progress Note Date of Service Dec 22, 2017. Interval History Sravani Garcia is a 22-year-old male [employer] student from [place] who was admitted on Dec 19, 2017 at 19:45 for depression and a suicide attempt by overdose on Elavil, alcohol, and NyQuil. He was initially admitted to the ICU on 12/19/17, and transferred to our unit voluntarily later that same day. A medical consult was requested due to elevated BP and pulse, and he was started on a Librium taper and clonidine. Chief Complaint "Good, some anxiety". Subjective Patient was seen & assessed interval progress reviewed with the treatment team. Staff report he continues to have elevated blood pressure, despite reporting improved anxiety and denying alcohol withdrawal symptoms. Overnight, 1 of his chlordiazepoxide doses was held, as he was sleeping soundly and could not easily be aroused. He has been receiving scheduled lorazepam and chlordiazepoxide, as well as clonidine for hypertension, and received an extra dose yesterday for a blood pressure of 163/115. He had a good visit with his mother last evening, and is interacting with staff and peers. This morning, blood pressure is 146/100. On my assessment, he states that although mood remains improved, he is feeling a bit more anxious today, noting he is worried about decompensating when he leaves the hospital. He states that he has been on "a bad cycle," and is concerned returning to his stressors will exacerbate his symptoms and that suicidal thoughts will return. He says he has "not really " been suicidal here, but fears that the thoughts will return and be overwhelming. He is able to contract for safety in the hospital, but not outside. He states that one of his primary stressors is his friends, and their negative reactions to his depression and suicidality. He says he sent a group text to his friends just prior to admission when he was intoxicated that maybe he should kill himself, and 1 friend replied "stop being annoying," while another friend replied "Sravani talks too much." He recognizes that these relationships are "toxic," and says he told his mother about this, and she suggested he delete the text messages, he wants to know if this is a good idea. One of these friends is also the president of his [employer], and his mother also suggested that he quit that organization, but he is not sure if he wants to do this. Encouraged him to take some time while he is here to process the pros and cons of remaining in the organization, and focusing on healthy friendships and relationships. He again talks about traumatic experiences he had in high school with friends, and how this has negatively affected his ability to make healthy friendships and college. He does feel he has good support from his sister, who offered to set up a group text with his 3 sisters so that he can easily communicate with them. He says that when his mother visited, he "kind of mentioned bisexuality was still a problem," and she responded by asking him if he had dated any girl's. He says she responded this way on one previous incident where he tried to talk to her about his uncertainty about his sexuality, and he does not like this responses he feels she is trying to "push him into being straight." He is working on his discharge safety plan. He denies side effects to sertraline, and is willing to increase the dose. He plans to go back and forth between [place] and [place] over the summer, as he wants to continue his job at [employer]. Sleep Information Total Hours of Sleep: 6.00 Meal Information Percent of Breakfast Consumed: 100 Percent of Lunch Consumed: 90 Percent of Dinner Consumed: 100 Mental Status Exam During interview pt is: alert and oriented, cooperative Appearance: appropriately dressed, appropriately groomed Eye contact is: good Motor behavior is: steady gait & station, no abnormal motor movements Speech: normal in rate, rhythm & volume Affect: mood congruent, anxious Mood is: other ("A little anxious") Thought process: goal directed Thought content: reality based without delusions Suicidal thought are: denied (But admits to a suicide attempt by tricyclic and alcohol overdose prior to admission, and unable to contract for safety outside of the hospitalist feels overwhelmed and thinking about his stress) Homicidal thoughts are: denied Hallucinations: denies auditory, denies visual Cognition: memory grossly intact (Except for events while intoxicated), attention grossly intact, language grossly intact Intelligence estimated to be: consistent with level of education Insight: fair Judgement: fair Impression 22-year-old male [employer] [facility] student from [place] who presented after a suicide attempt by overdose on 250 mg of amitriptyline, at least 6 shots of alcohol, and cold medication. He has been diagnosed with depression and treated by his PCP, but has no mental health providers. He identifies his primary stressor as his sexuality, which he has not been able to disclose to his friends or family, as well as significant relationship stressors with friend. He is admitted voluntarily, and has had persistent hypertension with a question of underlying hypertension versus components of alcohol withdrawal and anxiety. Although mood and anxiety have improved somewhat here, he is easily overwhelmed and thinking about returning to his stressors, cannot contract for safety outside hospital, and continues to require inpatient treatment due to the severity of symptoms and continuing high risk for suicide if discharged. Plan (1) Suicide attempt by other psychotropic drug overdose 12/20 -QTc normalized, and CPK coming down. Encourage fluids. Attend groups and work on a discharge safety plan. Would not recommend he have access to large amounts of medications, medications that are dangerous in overdose, or guns due to the risk of suicide. 12/21 -parents confirm no access to guns. Discussed charge safety plan, and encouraged him to start working on this. (2) Major depressive disorder 12/20 -Psychoeducation provided about diagnosis and treatment recommendations, including antidepressant and therapy. Sertraline was helpful in the past, and he is willing to resume it. Start 25 mg daily today, and increase to 50 mg daily tomorrow. -He will need to be referred for outpatient mental health treatment. Family meeting with parents, although patient does not want to disclose his sexuality to them. -Amitriptyline discontinued due to overdose and lethality in overdose. Should explore whether this medication is still present in his apartment, and if so ensure it is disposed of prior to discharge. 12/21 -Sertraline increased to 50 mg daily. -Family meeting held with parents yesterday. -Explore ways to increase supports locally. Encouraged him to consider attending an LGBT support group on campus, and he is thinking about ways to make new friends. -Continue to attend groups and work on healthy coping skills. Refer for outpatient follow-up with a psychiatrist and therapist. 12/22 -Increase sertraline to 75mg daily, group attendance and participation, and work on discharge safety plan. Continue to explore ways to increase supports. Will need outpatient follow-up. (3) Generalized anxiety disorder 12/20 -discussed diagnosis and treatment recommendations, including antidepressant medication and therapy. Start sertraline as above. Patient found Lorazepam 1 mg helpful, and we will place him on a brief taper here to address both anxiety and alcohol withdrawal, but advised that this would not be a good medication to take after leaving the hospital due to his addictions issues, and he expressed understanding. 4/ -patient reports anxiety has improved significantly, so will discontinue Lorazepam, as he is also on the chlordiazepoxide taper. (4) Alcohol dependence 12/20 -scored on AWSS this morning, with elevated blood pressure. We will continue to treat withdrawal, and consider the need to consult the hospitalist regarding persistently elevated blood pressure, as patient notes his father was diagnosed with hypertension at a young age and started on medication. -The patient's AUDIT score suggests problematic drinking (Zone III WHO). Brief intervention was offered and accepted . Intervention was greater than 5 min in length. Brief interventions include: 1. Assess Readiness to Quit, 2. Advise: Help Patient to Reduce or Abstain from Alcohol, 3. Agree: Set Specific, Feasible Goals, 4. Assist: Anticipate barriers, Problem-Solving Solutions. Social work to 5. Arrange: Referrals to appropriate treatment. Summary of intervention: The patient is in contemplation stage with regards to transtheoretical model of change. The patient is advised to decrease alcohol consumption due to depressant effects and risk of interactions with prescription medications. The patient agreed to abstain and will be provided with recovery materials to continue to education self on how to cope with their condition without drinking. -Refer for outpatient follow-up with a therapist and psychiatrist to address both mental health issues and substance use disorders. 12/21 -appreciate Dr. Rivas's recommendations, was started on clonidine and chlordiazepoxide taper yesterday for severe hypertension and tachycardia thought possibly related to withdrawal. Cannot rule out underlying hypertension. 2 -continue chlordiazepoxide taper, and AWSS protocol, although he has not scored high enough to receive extra Lorazepam since 12/20/2017. (5) Cannabis abuse 12/20 -reviewed risks of ongoing cannabis use and recommendations for abstinence. Refer for outpatient treatment as above. (6) Hypertension 12/22 -spoke with Dr. Mckenzie to review the case and continued elevated BP, on clonidine and received an extra dose yesterday; appreciate his recommendations. Questioning underlying hypertension, as patient remains hypertensive despite treatment of alcohol withdrawal and significant improvement in anxiety. Patient will need to follow up with his PCP for ongoing management post discharge. He would like a new PCP, community mental health social worker to make referral. Discharge / Aftercare Planning Primary Care Physician: Name: LIZ Therapist: Name: n/a Home Lending Officer: Name: n/a Visit Code E&M Code: 97581 Inventory Assets Strengths: supportive family, willing for treatment Needs: medication for depression and anxiety, OP care, family meeting/safety plan. Risk Factors Assessment Male: Yes : Yes /single/: Yes Higher / Fall in social status: No Health problems: Yes Mental Health Diagnoses: Yes Substance use disorders: Yes Previous attempt: Yes Previous attempt; didn't tell: Yes Family history of suicide: No Previous psychiatric stay: No Smoker: No Protective Factors Assessment Voodoo beliefs: No : No Responsible for young children: No Employed: Yes Supportive family: Yes Data Vital Signs Last 24 Hrs: Date Time Temp Pulse Resp B/P (MAP) Pulse Ox O2 Delivery O2 Flow Rate FiO2 12/22/17 08:01 36.4 85 16 146/100 12/22/17 06:43 36.4 84 16 129/82 (98) 89 134/92 (106) 12/21/17 22:01 89 16 143/99 (114) 12/21/17 21:16 36.4 89 16 143/99 12/21/17 17:24 36.7 92 16 163/115 12/21/17 14:04 114 159/96 (117) 12/21/17 13:46 114 159/96 (117) 12/21/17 12:07 36.5 102 18 154/107 Meds Administered Last 24 Hrs: Meds Administered (Past 24Hrs) Medications (Trade) Dose Ordered Sig/Cristian Route Start Time Stop Time Status Last Admin Dose Admin Lorazepam (Ativan Tab) PRN Dosing -Active Protocol UD PRN PO 12/20/17 10:00 01/19/18 09:59 12/20/17 16:16 1 MG Lorazepam (Ativan Tab) 1 mg BID PO 12/20/17 22:00 12/22/17 08:25 DC 12/22/17 07:45 1 MG Sertraline HCl (Zoloft Tab) 50 mg QAM PO 12/21/17 09:00 01/20/18 08:59 12/22/17 07:46 50 MG Sertraline HCl (Zoloft Tab) 25 mg NOW ONCE PO 12/20/17 13:15 12/20/17 13:20 DC 12/20/17 14:49 25 MG Lorazepam (Ativan Tab) 1 mg 1427 ONCE PO 12/20/17 14:27 12/20/17 14:38 DC 12/20/17 14:49 1 MG Chlordiazepoxide (Librium Cap) 25 mg NOW ONCE PO 12/20/17 19:00 12/20/17 19:01 DC 12/20/17 19:07 25 MG Lorazepam (Ativan Tab) 1 mg NOW ONCE PO 12/20/17 19:00 12/20/17 19:01 DC 12/20/17 19:07 1 MG Thiamine HCl (Vitamin B-1 Tab) 100 mg QAM PO 12/21/17 09:00 01/20/18 08:59 12/22/17 07:46 100 MG Thiamine HCl (Vitamin B-1 Tab) 100 mg 1918 ONCE PO 12/20/17 19:18 12/20/17 19:27 DC 12/20/17 20:25 100 MG Folic Acid (Folvite Tab) 1 mg QAM PO 12/21/17 09:00 01/20/18 08:59 12/22/17 07:46 1 MG Folic Acid (Folvite Tab) 1 mg 1918 ONCE PO 12/20/17 19:18 12/20/17 19:27 DC 12/20/17 20:25 1 MG Multivitamins/ Minerals (Multivitamin W/ Minerals Tab) 1 tab QAM PO 12/21/17 09:00 01/20/18 08:59 12/22/17 07:46 1 TAB Chlordiazepoxide (Librium Cap) 25 mg Q6H PO 12/20/17 20:00 12/21/17 14:01 DC 12/21/17 13:28 25 MG Chlordiazepoxide (Librium Cap) 25 mg Q8H PO 12/22/17 00:00 12/22/17 16:01 12/22/17 07:45 25 MG Clonidine HCl (Catapres Tab) 0.1 mg NOW ONCE PO 12/20/17 19:45 12/20/17 19:52 DC 12/20/17 20:30 0.1 MG Clonidine HCl (Catapres Tab) 0.1 mg BID PRN PO 12/21/17 08:00 01/20/18 07:59 12/21/17 17:20 0.1 MG Clonidine HCl (Catapres Tab) 0.1 mg NOW STAT PO 12/21/17 13:46 12/21/17 13:47 DC 12/21/17 13:49 0.1 MG Problem Qualifiers (1) Major depressive disorder: Major depression recurrence: recurrent
[2017-12-22] MEDS ORDERED: LISINOPRIL 20 MG TAB PO ONE (10:45)
--- NOTE | 2017-12-22 16:33 | Progress Note ---
Subjective Date of Service: Dec 22, 2017. Subjective Pt evaluation today including: conversation w/ patient, physical exam, conversation w/ clinical education consultant, review of inpatient medication list Pain: no pain PO Intake: adequate Voiding: no voiding problems patient feeling better, less anxiety talked about elevated BP, even his diastolic BP elevated says his father had hypertension at age 21 discussed starting Lisinopril, he agrees with plan Problem List Medical Problems: (1) Alcohol intoxication Status: Acute (2) Medication overdose Status: Acute (3) Suicide attempt Status: Acute Review of Systems Psychiatric: + anxiety All Other Systems: Reviewed and Negative Medications Current Inpatient Medications Medications (Trade) Dose Ordered Sig/Cristian Route Start Time Stop Time Status Last Admin Dose Admin Acetaminophen (Tylenol Tab) 650 mg Q4H PRN PO 12/19/17 20:00 01/18/18 19:59 Bismuth Subsalicylate (Kaopectate Liqd) 15 ml PRN PRN PO 12/19/17 20:00 01/18/18 19:59 Al Hydroxide/Mg Hydroxide (Maalox Susp) 30 ml Q4H PRN PO 12/19/17 20:00 01/18/18 19:59 Magnesium Hydroxide (Milk Of Magnesia Susp) 30 ml DAILY PRN PO 12/19/17 20:00 01/18/18 19:59 Sodium Chloride ([place] Nasal [place]) PRN PRN NA 12/19/17 20:00 01/18/18 19:59 Hydroxyzine HCl (Vistaril Tab) 50 mg HSZ PRN PO 12/19/17 20:00 01/18/18 19:59 12/21/17 23:34 50 MG Hydroxyzine HCl (Vistaril Tab) 25 mg Q4H PRN PO 12/19/17 20:00 01/18/18 19:59 Lorazepam (Ativan Tab) PRN Dosing -Active Protocol UD PRN PO 12/20/17 10:00 01/19/18 09:59 12/20/17 16:16 1 MG Thiamine HCl (Vitamin B-1 Tab) 100 mg QAM PO 12/21/17 09:00 01/20/18 08:59 12/22/17 07:46 100 MG Folic Acid (Folvite Tab) 1 mg QAM PO 12/21/17 09:00 01/20/18 08:59 12/22/17 07:46 1 MG Multivitamins/ Minerals (Multivitamin W/ Minerals Tab) 1 tab QAM PO 12/21/17 09:00 01/20/18 08:59 12/22/17 07:46 1 TAB Chlordiazepoxide (Librium Cap) 10 mg Q8H PO 12/23/17 00:00 12/23/17 16:01 Chlordiazepoxide (Librium Cap) 5 mg Q12H PO 12/24/17 06:00 12/24/17 18:01 Lisinopril (Zestril Tab) 20 mg QAM PO 12/23/17 09:00 01/22/18 08:59 Sertraline HCl (Zoloft Tab) 75 mg QAM PO 12/23/17 09:00 01/20/18 08:59 Objective Vital Signs Date Time Temp Pulse Resp B/P (MAP) Pulse Ox O2 Delivery O2 Flow Rate FiO2 12/22/17 16:15 36.4 91 18 133/79 12/22/17 14:03 98 137/89 (105) 12/22/17 12:31 36.7 98 16 137/89 12/22/17 10:50 105 143/89 12/22/17 08:01 36.4 85 16 146/100 12/22/17 06:43 36.4 84 16 129/82 (98) 89 134/92 (106) 12/21/17 22:01 89 16 143/99 (114) 12/21/17 21:16 36.4 89 16 143/99 12/21/17 17:24 36.7 92 16 163/115 Physical Exam General Appearance: WD/WN, no apparent distress Eyes: normal inspection, EOMI, sclerae normal ENT: normal ENT inspection, hearing grossly normal, pharynx normal Neck: supple, no adenopathy, no JVD, trachea midline Respiratory/Chest: chest non-tender, lungs clear, normal breath sounds, no respiratory distress, no accessory muscle use Cardiovascular: regular rate, rhythm, no edema, no gallop, no JVD, no murmur Abdomen: normal bowel sounds, non tender, soft, no organomegaly Extremities: normal range of motion, non-tender, normal inspection, no pedal edema, no calf tenderness, pelvis stable Neurologic/Psychiatric: striker out II-XII nml as tested, no motor/sensory deficits, alert, normal mood/affect, oriented x 3 Skin: normal color, warm/dry, no rash Lymphatic: no adenopathy Assessment and Plan This patient is a 22-year-old male admitted and medically cleared yesterday for a TCA overdose and suicide attempt. Admitted to the mental health unit with major depressive disorder, generalized anxiety disorder, found to have tachycardia and hypertension worsening over the last 24 hours. Elevated blood pressure/sinus tachycardia-blood pressures as high as 178/128, sinus tachycardia in the low 100s-110s. improved today but diastolic pressures still high will stop Clonidine PRN and start Lisinopril 20mg daily, first dose today follow pressures monitor potassium in a week warned patient of dry cough Alcohol withdrawal: no further signs of withdrawal on Librium protocol with Ativan PRN TCA overdose: medically stable Disposition-remains on mental health unit
[2017-12-22] MEDS: hydrOXYzine HCL 25 MG TAB PO PRN ×2 (22:19→23:09)
[2017-12-23] MEDS: CHLORDIAZEPOXIDE 10MG Q8H DOSE PO SCH ×4 (00:10→21:03)
[2017-12-23 06:36] VITALS: BP_SYST 120; BP_SYST 131; BP_DIAS 78; BP_DIAS 84; PULSE 93; PULSE 97; TEMP 36.4
[2017-12-23] MEDS: CEROVITE ADV FORMULA TAB PO SCH (07:53)
[2017-12-23] MEDS: LISINOPRIL 20 MG TAB PO SCH (07:53)
[2017-12-23] MEDS: THIAMINE HCL 100 MG TAB PO SCH (07:53)
[2017-12-23] MEDS: SERTRALINE HCL 50 MG TAB PO SCH (07:54)
[2017-12-23 08:15] VITALS: BP 131/84; PULSE 93; PULSE 97; TEMP 36.4
--- NOTE | 2017-12-23 09:52 | Psychiatric Progress Notes ---
Progress Note Date of Service Dec 23, 2017. 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 He was initially admitted to the ICU on 12/19/17, and transferred to our unit voluntarily later that same day. A medical consult was requested due to elevated BP and pulse, and he was started on a Librium taper and clonidine. Chief Complaint "Feeling better". Subjective Patient was seen & assessed interval progress reviewed with Nursing. Staff report he is attending groups and participating appropriately, and continues to process his stressors. He also processed his low self-esteem with the counselor , and talked about his core belief that he is not likable and difficulties with perceived rejection. He also talked about his pattern of becoming emotional and more depressed when drinking, and plans to abstain. Staff met with the patient and his parents last evening at his mother's request. She expressed concerns that he would get upset when looking at text messages from friends, especially a particular friend who has been unkind. We discussed the difficulties in establishing and maintaining healthy friendships. He has remains unwilling to talk openly about his sexual orientation with his parents. He reported improved mood, and rated it a 9 out of 10. On my assessment today , he states that he feels mood and anxiety are improving, and he is feeling more comfortable with the idea of discharge. He thinks he will tell his 2 roommates about his hospitalization as he trusts them, and has thought about how to respond to other people who might ask him where he has been if he does not want to provide detailed information. He is thinking about disconnecting himself from friends who have been unkind and unsupportive. He notes that he continues to struggle with low self-esteem and feels "a little down about myself ," and recognizes this is something he will need to continue to work on an outpatient therapy. We discussed his substance use, and he recognizes that he becomes "overly emotional" when drinking, and agrees that he should not drink for the foreseeable future. His parents are going to remove his alcohol alcohol from his apartment prior to discharge. He also admits that he was smoking marijuana multiple times a day as a way to manage anxiety, and that it led to low energy and motivation. He states he used to work out, but has not been exercising regularly for the past year, and would like to get back to that. He is also thinking about getting involved in sadia, as his roommates enjoys video games. He denies suicidal thoughts. He thinks that if he continues to improve, he may be ready to go home tomorrow, and return to classes on Friday. Sleep Information Total Hours of Sleep: 6.75 Meal Information Percent of Breakfast Consumed: 100 Percent of Lunch Consumed: 98 Percent of Dinner Consumed: 90 Mental Status Exam During interview pt is: alert and oriented, cooperative Appearance: appropriately dressed, appropriately groomed Eye contact is: good Motor behavior is: steady gait & station, no abnormal motor movements Speech: normal in rate, rhythm & volume Affect: mood congruent, anxious (Mildly, improved) Mood is: other ("Feeling better") Thought process: goal directed Thought content: reality based without delusions Suicidal thought are: denied Homicidal thoughts are: denied Hallucinations: denies auditory, denies visual Cognition: memory grossly intact (Except for events while intoxicated), attention grossly intact, language grossly intact Intelligence estimated to be: consistent with level of education Insight: fair Judgement: fair Impression 22-year-old male [employer] student from [place] who presented after a suicide attempt by overdose on 250 mg of amitriptyline, at least 6 shots of alcohol, and cold medication. He has been diagnosed with depression and treated by his PCP, but has no mental health providers. He identifies his primary stressor as his sexuality, which he has not been able to disclose to his friends or family, as well as significant relationship stressors with friends, and chronic low self-esteem. He is admitted voluntarily, and has had persistent hypertension with a question of underlying hypertension versus components of alcohol withdrawal and anxiety, for which the hospitalist was consulted and started him on lisinopril. Mood and anxiety are slowly improving , and he is working hard on healthy coping skills and how to manage returning to his stressors. He continues to require inpatient treatment at this time as he remains easily overwhelmed, improvement is tentative, cannot contract for safety outside hospital, and is at risk for suicide if discharged prematurely. Plan (1) Suicide attempt by other psychotropic drug overdose 12/20 -QTc normalized, and CPK coming down. Encourage fluids. Attend groups and work on a discharge safety plan. Would not recommend he have access to large amounts of medications, medications that are dangerous in overdose, or guns due to the risk of suicide. 12/21 -parents confirm no access to guns. Discussed charge safety plan, and encouraged him to start working on this. 12/23 -confirmed with patient that amitriptyline has been removed (his mother took it to dispose of it). Parents are also removing alcohol from his apartment. (2) Major depressive disorder 12/20 -Psychoeducation provided about diagnosis and treatment recommendations, including antidepressant and therapy. Sertraline was helpful in the past, and he is willing to resume it. Start 25 mg daily today, and increase to 50 mg daily tomorrow. -He will need to be referred for outpatient mental health treatment. Family meeting with parents, although patient does not want to disclose his sexuality to them. -Amitriptyline discontinued due to overdose and lethality in overdose. Should explore whether this medication is still present in his apartment, and if so ensure it is disposed of prior to discharge. 12/21 -Sertraline increased to 50 mg daily. -Family meeting held with parents yesterday. -Explore ways to increase supports locally. Encouraged him to consider attending an LGBT support group on campus, and he is thinking about ways to make new friends. -Continue to attend groups and work on healthy coping skills. Refer for outpatient follow-up with a psychiatrist and therapist. 12/22 -Increase sertraline to 75mg daily, group attendance and participation, and work on discharge safety plan. Continue to explore ways to increase supports. Will need outpatient follow-up. 12/23 -Continue sertraline, groups, therapy, and working on healthy coping skills. Patient has benefited from CBT techniques to identify and challenge core beliefs. Continue to explore ways to increase his supports after discharge. Has been referred to [facility] for psychiatric follow-up, and exploring options for outpatient therapy. (3) Generalized anxiety disorder 12/20 -discussed diagnosis and treatment recommendations, including antidepressant medication and therapy. Start sertraline as above. Patient found Lorazepam 1 mg helpful, and we will place him on a brief taper here to address both anxiety and alcohol withdrawal, but advised that this would not be a good medication to take after leaving the hospital due to his addictions issues, and he expressed understanding. 4/2 -patient reports anxiety has improved significantly, so will discontinue Lorazepam, as he is also on the chlordiazepoxide taper. 4 -continue to work on behavioral techniques for managing anxiety; patient would like to return to regular exercise as this has been beneficial in the past. (4) Alcohol dependence 12/20 -scored on AWSS this morning, with elevated blood pressure. We will continue to treat withdrawal, and consider the need to consult the hospitalist regarding persistently elevated blood pressure, as patient notes his father was diagnosed with hypertension at a young age and started on medication. -The patient's AUDIT score suggests problematic drinking (Zone III WHO). Brief intervention was offered and accepted . Intervention was greater than 5 min in length. Brief interventions include: 1. Assess Readiness to Quit, 2. Advise: Help Patient to Reduce or Abstain from Alcohol, 3. Agree: Set Specific, Feasible Goals, 4. Assist: Anticipate barriers, Problem-Solving Solutions. Social work to 5. Arrange: Referrals to appropriate treatment. Summary of intervention: The patient is in contemplation stage with regards to transtheoretical model of change. The patient is advised to decrease alcohol consumption due to depressant effects and risk of interactions with prescription medications. The patient agreed to abstain and will be provided with recovery materials to continue to education self on how to cope with their condition without drinking. -Refer for outpatient follow-up with a therapist and psychiatrist to address both mental health issues and substance use disorders. 12/21 -appreciate Dr. Rivas's recommendations, was started on clonidine and chlordiazepoxide taper yesterday for severe hypertension and tachycardia thought possibly related to withdrawal. Cannot rule out underlying hypertension. 12/22 -continue chlordiazepoxide taper, and AWSS protocol, although he has not scored high enough to receive extra Lorazepam since 12/20/2017. 3 -not scoring on AWSS, so will discontinue it. Again reviewed the risks of alcohol abuse, and he is willing to abstain for the foreseeable future. Parents are removing alcohol from his apartment prior to discharge. He is following up with a psychiatrist and therapist for mental health and substance abuse treatment. (5) Cannabis abuse 12/20 -reviewed risks of ongoing cannabis use and recommendations for abstinence. Refer for outpatient treatment as above. 12/23 -again reviewed risks of regular cannabis use and recommendations for abstinence for the foreseeable future. He has been referred for outpatient follow-up with a psychiatrist and a therapist for both mental health and substance abuse treatment. (6) Hypertension 12/22 -spoke with Dr. Mckenzie to review the case and continued elevated BP, on clonidine and received an extra dose yesterday; appreciate his recommendations. Questioning underlying hypertension, as patient remains hypertensive despite treatment of alcohol withdrawal and significant improvement in anxiety. Patient will need to follow up with his PCP for ongoing management post discharge. He would like a new PCP, sexual assault social worker to make referral. 12/23 -appreciate Dr. Mckenzie's recommendations; clonidine discontinued and started on lisinopril 20 mg daily. Blood pressure improved and within normal limits today. He willing to follow up with PCP for blood pressure monitoring and to recheck potassium. He would like to be referred to a male PCP in the community. Discharge / Aftercare Planning Primary Care Physician: Name: [facility] Appointment Notes: appointment to be scheduled as needed Psychiatrist: Name: Jaida Tim - bring ins. card , photo ID Date of Appointment: Dec 30, 2017 Time of Appointment: 2:00 pm [place]ointment Notes: [address] [facility] [place] [address], [place] [address] Therapist: Name: [facility] Date of Appointment: Dec 26, 2017 Time of Appointment: 8:30 am Appointment Notes: [address], [place] [address] Rn Cvor: Name: n/a Other: Name of Appointment #1: [facility] Date of Appointment #1: Dec 26, 2017 Time of Appointment #1: 3:00 pm Appointment #1 Notes: [address] [facility] [place] [id number] Visit Code E&M Code: 34990 Inventory Assets Strengths: supportive family, willing for treatment Needs: medication for depression and anxiety, OP care, family meeting/safety plan. Risk Factors Assessment Male: Yes : Yes /single/: Yes Higher / Fall in social status: No Health problems: Yes Mental Health Diagnoses: Yes Substance use disorders: Yes Previous attempt: Yes Previous attempt; didn't tell: Yes Family history of suicide: No Previous psychiatric stay: No Smoker: No Protective Factors Assessment Worship beliefs: No : No Responsible for young children: No Employed: Yes Supportive family: Yes Data Vital Signs Last 24 Hrs: Date Time Temp Pulse Resp B/P (MAP) Pulse Ox O2 Delivery O2 Flow Rate FiO2 12/23/17 08:15 36.4 97 14 131/84 93 12/23/17 06:36 36.4 93 14 120/78 (92) 97 131/84 (100) 12/22/17 22:42 36.6 98 16 123/86 (98) 88 12/22/17 20:40 36.6 88 16 123/86 12/22/17 16:15 36.4 91 18 133/79 12/22/17 14:03 98 137/89 (105) 12/22/17 12:31 36.7 98 16 137/89 12/22/17 10:50 105 143/89 Meds Administered Last 24 Hrs: Meds Administered (Past 24Hrs) Medications (Trade) Dose Ordered Sig/Cristian Route Start Time Stop Time Status Last Admin Dose Admin Chlordiazepoxide (Librium Cap) 25 mg Q8H PO 12/22/17 00:00 12/22/17 16:01 DC 12/22/17 17:20 25 MG Chlordiazepoxide (Librium Cap) 10 mg Q8H PO 12/23/17 00:00 12/23/17 16:01 12/23/17 07:53 10 MG Clonidine HCl (Catapres Tab) 0.1 mg NOW STAT PO 12/21/17 13:46 12/21/17 13:47 DC 12/21/17 13:49 0.1 MG Lisinopril (Zestril Tab) 20 mg TODAY@1045 ONCE PO 12/22/17 10:45 12/22/17 10:46 DC 12/22/17 11:01 20 MG Lisinopril (Zestril Tab) 20 mg QAM PO 12/23/17 09:00 01/22/18 08:59 12/23/17 07:53 20 MG Sertraline HCl (Zoloft Tab) 75 mg QAM PO 12/23/17 09:00 01/20/18 08:59 12/23/17 07:54 75 MG Problem Qualifiers (1) Major depressive disorder: Major depression recurrence: recurrent
--- NOTE | 2017-12-23 11:42 | Progress Note ---
Subjective Date of Service: Dec 23, 2017. Subjective Pt evaluation today including: conversation w/ patient, physical exam, review of inpatient medication list Pain: no pain PO Intake: adequate Voiding: no voiding problems patient sitting in bed, calm, feels well eating well, sleeping well excited about leaving tomorrow BP better controlled on Lisinopril 20mg, will continue this dose Problem List Medical Problems: (1) Alcohol intoxication Status: Acute (2) Medication overdose Status: Acute (3) Suicide attempt Status: Acute Review of Systems All Other Systems: Reviewed and Negative Medications Current Inpatient Medications Medications (Trade) Dose Ordered Sig/Cristian Route Start Time Stop Time Status Last Admin Dose Admin Acetaminophen (Tylenol Tab) 650 mg Q4H PRN PO 12/19/17 20:00 01/18/18 19:59 Bismuth Subsalicylate (Kaopectate Liqd) 15 ml PRN PRN PO 12/19/17 20:00 01/18/18 19:59 Al Hydroxide/Mg Hydroxide (Maalox Susp) 30 ml Q4H PRN PO 12/19/17 20:00 01/18/18 19:59 Magnesium Hydroxide (Milk Of Magnesia Susp) 30 ml DAILY PRN PO 12/19/17 20:00 01/18/18 19:59 Sodium Chloride (Novice Nasal [place]) PRN PRN NA 12/19/17 20:00 01/18/18 19:59 Hydroxyzine HCl (Vistaril Tab) 50 mg HSZ PRN PO 12/19/17 20:00 01/18/18 19:59 12/22/17 23:09 50 MG Hydroxyzine HCl (Vistaril Tab) 25 mg Q4H PRN PO 12/19/17 20:00 01/18/18 19:59 Thiamine HCl (Vitamin B-1 Tab) 100 mg QAM PO 12/21/17 09:00 01/20/18 08:59 12/23/17 07:53 100 MG Folic Acid (Folvite Tab) 1 mg QAM PO 12/21/17 09:00 01/20/18 08:59 12/23/17 07:53 1 MG Multivitamins/ Minerals (Multivitamin W/ Minerals Tab) 1 tab QAM PO 12/21/17 09:00 01/20/18 08:59 12/23/17 07:53 1 TAB Chlordiazepoxide (Librium Cap) 10 mg Q8H PO 12/23/17 00:00 12/23/17 16:01 12/23/17 07:53 10 MG Chlordiazepoxide (Librium Cap) 5 mg Q12H PO 12/24/17 06:00 12/24/17 18:01 Lisinopril (Zestril Tab) 20 mg QAM PO 12/23/17 09:00 01/22/18 08:59 12/23/17 07:53 20 MG Sertraline HCl (Zoloft Tab) 75 mg QAM PO 12/23/17 09:00 01/20/18 08:59 12/23/17 07:54 75 MG Objective Vital Signs Date Time Temp Pulse Resp B/P (MAP) Pulse Ox O2 Delivery O2 Flow Rate FiO2 12/23/17 08:15 36.4 97 14 131/84 93 12/23/17 06:36 36.4 93 14 120/78 (92) 97 131/84 (100) 12/22/17 22:42 36.6 98 16 123/86 (98) 88 12/22/17 20:40 36.6 88 16 123/86 12/22/17 16:15 36.4 91 18 133/79 12/22/17 14:03 98 137/89 (105) 12/22/17 12:31 36.7 98 16 137/89 Physical Exam General Appearance: WD/WN, no apparent distress Eyes: normal inspection, EOMI, sclerae normal ENT: normal ENT inspection, hearing grossly normal, pharynx normal Neck: supple, no adenopathy, no JVD, trachea midline Respiratory/Chest: chest non-tender, lungs clear, normal breath sounds, no respiratory distress, no accessory muscle use Cardiovascular: regular rate, rhythm, no edema, no gallop, no JVD, no murmur Abdomen: normal bowel sounds, non tender, soft, no organomegaly Extremities: normal range of motion, non-tender, normal inspection, no pedal edema, no calf tenderness, pelvis stable Neurologic/Psychiatric: transportation agent II-XII nml as tested, no motor/sensory deficits, alert, oriented x 3 Skin: normal color, warm/dry, no rash Assessment and Plan This patient is a 22-year-old male admitted and medically cleared yesterday for a TCA overdose and suicide attempt. Admitted to the mental health unit with major depressive disorder, generalized anxiety disorder, found to have tachycardia and hypertension worsening over the last 24 hours. Elevated blood pressure/sinus tachycardia-blood pressures as high as 178/128, sinus tachycardia in the low 100s-110s. likely with essential hypertension given family history of dad having HTN as a teenager supported by the fact that diastolic pressures were elevated started on Lisinopril 20mg, good response with pressures normal today would continue Lisinopril 20mg daily on discharge should follow up with PCP in one 1-2 weeks for blood pressure check, should check BMP at that time to check potassium level warned patient of potential side effect of dry cough Alcohol withdrawal: no further signs of withdrawal on Librium protocol with Ativan PRN TCA overdose: medically stable Disposition-remains on mental health unit will sign off at this time, medically stable
[2017-12-23 14:23] VITALS: BP 148/80; PULSE 101
[2017-12-23] MEDS ORDERED: CHLORDIAZEPOXIDE 10 MG CAP ONE (21:02)
[2017-12-23] MEDS: hydrOXYzine HCL 25 MG TAB PO PRN ×2 (22:22→23:18)
[2017-12-24] MEDS ORDERED: CHLORDIAZEPOXIDE 5MG Q12H DOSE PO SCH (06:00)
[2017-12-24 06:41] VITALS: BP_SYST 109; BP_SYST 112; BP_DIAS 76; BP_DIAS 78; PULSE 75; PULSE 91; TEMP 36.5
[2017-12-24 06:42] VITALS: BP_SYST 109; BP_SYST 112; BP_DIAS 76; BP_DIAS 78; PULSE 75; PULSE 91; TEMP 36.5
[2017-12-24] MEDS ORDERED: LSN20 PO (08:14)
[2017-12-24] MEDS ORDERED: ZLF50 PO (08:14)
[2017-12-24] MEDS: CEROVITE ADV FORMULA TAB PO SCH (08:35)
[2017-12-24] MEDS: THIAMINE HCL 100 MG TAB PO SCH (08:36)
[2017-12-24] MEDS: SERTRALINE HCL 50 MG TAB PO SCH (08:36)
[2017-12-24] MEDS: LISINOPRIL 20 MG TAB PO SCH (08:36)
--- NOTE | 2017-12-24 09:27 | Discharge Instructions ---
Discharge Information Admission Admission Date / Time: Dec 19, 2017 at 19:45 Reason for Admission: Major Depressive Order Activity Recommendations . Instructions / Follow-Up Instructions / Follow-Up . SPECIAL CARE INSTRUCTIONS: 1. Follow through with your scheduled aftercare appointments. If unable to keep an appointment, please call to reschedule. 2. Take your medication only as prescribed. Medication should not be changed or stopped without the approval of your doctor. In the event of worsening symptoms or concerns about side effects, contact your doctor immediately. 3. Utilize new healthy coping skills, anger management skills, and stress management skills learned during your hospitalization. Journal feelings and process them with a support person. Identify stressors or situations that may result in relapse, deterioration or inappropriate behaviors and develop a plan to deal with those issues. 4. If your coping skills are ineffective and you are in crisis, contact your outpatient providers for direction. If unable to reach your providers, please call the CAN HELP LINE AT or go to the closest Emergency Room. 5. Avoid alcohol and un-prescribed drugs. 6. You have been provided with the Mental Health Advance Directives Pamphlet for your review. AFTERCARE APPOINTMENTS: * Please call your insurance company prior to your scheduled appointment to confirm your aftercare providers are covered. Take your insurance information to your appointments. . Discharge / Aftercare Planning Primary Care Physician: Name: [facility] - Dr. Caldera Date of Appointment: Jan 08, 2018 Time of Appointment: 10:20 am Appointment Notes: [address] [facility] [place] [address] Psychiatrist: Name: Jaida richard. card , photo ID Date of Appointment: Dec 30, 2017 Time of Appointment: 2:00 pm Appointment Notes: [address] [place] [address], [place] [address] Therapist: Name Of Therapist: Jaida Steve Date of Appointment: Jan 01, 2018 Time of Appointment: 11:30 am Appointment Comments: [address] [place] [address] Landing Man: Name: n/a Other: Name of Appointment #1: [facility] Date of Appointment #1: Dec 26, 2017 Time of Appointment #1: 3:00 pm Appointment #1 Notes: [address] [facility] [address] . Current Hospital Diet Patient's current hospital diet: Regular Diet Medical Emergencies . Who to Call and When: Medical Emergencies: For questions or emergencies related to your hospital stay, please contact the Inpatient Behavioral Health Unit at [phone]. A hand spring repairer is on-call 14/04 for the Behavioral Health Unit for emergencies At any time you feel your situation is an emergency, you may also call 911 immediately. . Advance Directives Existing Advance Directive: No Do You Have an Existing Mental: No Existing Living Will: No Existing Power of Book Canvasser: No Advance Directives Info Given: To Pt/S.O. Advance Directives Reason: Declines as Mental Health Visit. Discharge Summary Admission HPI Per the Admitting provider: Chart reviewed; patient presented to the emergency room 12/19/2017 after he told his friends that he had overdosed on amitriptyline and cough medication, per 1 note DayQuil and per another note NyQuil. He had also been drinking alcohol, at least 6 shots. His friends told hospital staff the patient had been stating that he wanted to for the last few weeks. EMS reported that he was bleeding from his mouth, and it was unclear if he had fallen. He was intoxicated on presentation, with a BAL of 102, and UDS was positive for marijuana. He was admitted to the ICU, and admitted that he had taken 10 tablets of 25 mg amitriptyline at approximately 11 PM the day prior. His mother was at the bedside and confirmed that he had been seen at [facility] by a psychologist, had no previous inpatient psychiatric hospitalizations, and has no access to firearms. He received IV fluids in the ICU, was noted to be tachycardic and hypertensive. He had an elevated anion gap and prolonged QTc. CPK was followed due to concerns for rhabdomyolysis, and increased to [address] was performed and showed no acute injuries. He was seen by the psychiatric consult service yesterday, and admitted that he had attempted suicide with his overdose. His primary stressor is his sexuality, stated he was not sure if he was homosexual or bisexual, and has not come out to anyone yet, fearing that his family will not be supportive. He continued to endorse depressed mood and suicidal thoughts, and admitted to history of 2 suicide attempts by overdose, most recently overdosing on NyQuil in November 2016. He also admitted to an increase in his alcohol intake, drinking 10 drinks 3-4 times a week. He reports being treated for depression by his PCP, and says the Elavil he overdosed on was prescribed by his PCP. He was medically cleared last evening and transferred to the behavioral health unit voluntarily. On my assessment, he reviews the events that led to his overdose, stating he had been dealing with several stressors, including finding out that a position he got on a [email or web address] committee was shared with someone else, which was a disappointment, and his roommates and friends making derogatory statements about him, which he states is not unusual, feeling they often make fun of him and it hurts him. There is a larger underlying stressor of his sexuality, as he identifies as sadler, but has not felt comfortable coming out to people as he fears being judged. He actually had a same sex relationship earlier in the year , but ended it when his boyfriend wanted to make the relationship public, as he did not feel ready for that. He is able to identify his primary concern, which is that people in his home town of [place] what refer to his family is "the one with the sadler son," and also concerns about his parents as they are Latter-Day. He does not really have anyone that he can talk to openly about this , although he has started coming out to some of his friends and the response has been positive. The night of his overdose, he had invited people over "to get drunk," and then was thinking about his stressors and became overwhelmed. He impulsively took the amitriptyline OD, 10 tabs, with intent to , noting that he had read about tricyclic OD and knew that it could be lethal. He wrote a suicide note, but doesn't recall what it said or what exactly happened after the OD that caused his friends to become concerned. He thinks they brought him to the ER themselves, and his only communication with them was a text apologizing. He denies changes in appetite, but has been eating out a lot and has gained 20 pounds in the past year. He endorses depressed mood, states it has been worsening for months and is the worst it's ever been, rates mood a 2 out of 10. Endorses decreased interest, low energy and motivation, and has had occasional thoughts of wishing he would . He has not been sleeping enough, staying up late playing on his computer, and doesn't feel rested during the day. He reports chronic anxiety with racing thoughts, constant worry, and has always been a worrier. Denies symptoms of panic (other than 1 episode last year) , PTSD, and OCD. He denies symptoms of cintia and psychosis, other than an episode of hallucinations while under the influence of a Benadryl overdose in the past. He admits he has been using MJ and alcohol excessively and recognizes that he should not drink, stating people have told him he "gets crazy and shouldn't drink." He also notes cannabis use interferes with motivation and focus. Hospital Course (1) Suicide attempt by other psychotropic drug overdose 12/20 -QTc normalized, and CPK coming down. Encourage fluids. Attend groups and work on a discharge safety plan. Would not recommend he have access to large amounts of medications, medications that are dangerous in overdose, or guns due to the risk of suicide. 12/21 -parents confirm no access to guns. Discussed charge safety plan, and encouraged him to start working on this. 12/23 -confirmed with patient that amitriptyline has been removed (his mother took it to dispose of it). Parents are also removing alcohol from his apartment. (2) Major depressive disorder 12/20 -Psychoeducation provided about diagnosis and treatment recommendations, including antidepressant and therapy. Sertraline was helpful in the past, and he is willing to resume it. Start 25 mg daily today, and increase to 50 mg daily tomorrow. -He will need to be referred for outpatient mental health treatment. Family meeting with parents, although patient does not want to disclose his sexuality to them. -Amitriptyline discontinued due to overdose and lethality in overdose. Should explore whether this medication is still present in his apartment, and if so ensure it is disposed of prior to discharge. 12/21 -Sertraline increased to 50 mg daily. -Family meeting held with parents yesterday. -Explore ways to increase supports locally. Encouraged him to consider attending an LGBT support group on campus, and he is thinking about ways to make new friends. -Continue to attend groups and work on healthy coping skills. Refer for outpatient follow-up with a psychiatrist and therapist. 12/22 -Increase sertraline to 75mg daily, group attendance and participation, and work on discharge safety plan. Continue to explore ways to increase supports. Will need outpatient follow-up. 12/23 -Continue sertraline, groups, therapy, and working on healthy coping skills. Patient has benefited from CBT techniques to identify and challenge core beliefs. Continue to explore ways to increase his supports after discharge. Has been referred to [facility] for psychiatric follow-up, and exploring options for outpatient therapy. (3) Generalized anxiety disorder 12/20 -discussed diagnosis and treatment recommendations, including antidepressant medication and therapy. Start sertraline as above. Patient found Lorazepam 1 mg helpful, and we will place him on a brief taper here to address both anxiety and alcohol withdrawal, but advised that this would not be a good medication to take after leaving the hospital due to his addictions issues, and he expressed understanding. 12/22 -patient reports anxiety has improved significantly, so will discontinue Lorazepam, as he is also on the chlordiazepoxide taper. 12/23 -continue to work on behavioral techniques for managing anxiety; patient would like to return to regular exercise as this has been beneficial in the past. (4) Alcohol dependence 12/20 -scored on AWSS this morning, with elevated blood pressure. We will continue to treat withdrawal, and consider the need to consult the hospitalist regarding persistently elevated blood pressure, as patient notes his father was diagnosed with hypertension at a young age and started on medication. -The patient's AUDIT score suggests problematic drinking (Zone III WHO). Brief intervention was offered and accepted . Intervention was greater than 5 min in length. Brief interventions include: 1. Assess Readiness to Quit, 2. Advise: Help Patient to Reduce or Abstain from Alcohol, 3. Agree: Set Specific, Feasible Goals, 4. Assist: Anticipate barriers, Problem-Solving Solutions. Social work to 5. Arrange: Referrals to appropriate treatment. Summary of intervention: The patient is in contemplation stage with regards to transtheoretical model of change. The patient is advised to decrease alcohol consumption due to depressant effects and risk of interactions with prescription medications. The patient agreed to abstain and will be provided with recovery materials to continue to education self on how to cope with their condition without drinking. -Refer for outpatient follow-up with a therapist and psychiatrist to address both mental health issues and substance use disorders. 12/21 -appreciate Dr. Rivas's recommendations, was started on clonidine and chlordiazepoxide taper yesterday for severe hypertension and tachycardia thought possibly related to withdrawal. Cannot rule out underlying hypertension. 12/22 -continue chlordiazepoxide taper, and AWSS protocol, although he has not scored high enough to receive extra Lorazepam since 12/20/2017. 12/23 -not scoring on AWSS, so will discontinue it. Again reviewed the risks of alcohol abuse, and he is willing to abstain for the foreseeable future. Parents are removing alcohol from his apartment prior to discharge. He is following up with a psychiatrist and therapist for mental health and substance abuse treatment. (5) Cannabis abuse 12/20 -reviewed risks of ongoing cannabis use and recommendations for abstinence. Refer for outpatient treatment as above. 12/23 -again reviewed risks of regular cannabis use and recommendations for abstinence for the foreseeable future. He has been referred for outpatient follow-up with a psychiatrist and a therapist for both mental health and substance abuse treatment. (6) Hypertension 12/22 -spoke with Dr. Mckeznie to review the case and continued elevated BP, on clonidine and received an extra dose yesterday; appreciate his recommendations. Questioning underlying hypertension, as patient remains hypertensive despite treatment of alcohol withdrawal and significant improvement in anxiety. Patient will need to follow up with his PCP for ongoing management post discharge. He would like a new PCP, social media coordinator to make referral. 12/23 -appreciate Dr. Mckenzie's recommendations; clonidine discontinued and started on lisinopril 20 mg daily. Blood pressure improved and within normal limits today. He willing to follow up with PCP for blood pressure monitoring and to recheck potassium. He would like to be referred to a male PCP in the community. Risk Factors Assessment Male: Yes : Yes /single/: Yes Higher / Fall in social status: No Health problems: Yes Mental Health Diagnoses: Yes Substance use disorders: Yes Previous attempt: Yes Previous attempt; didn't tell: Yes Family history of suicide: No Previous psychiatric stay: No Smoker: No Protective Factors Assessment [employer] beliefs: No : No Responsible for young children: No Employed: Yes Supportive family: Yes Laboratory Test 12/20/17 06:39 Total Creatine Kinase 1619 Tobacco Cessation at Discharge Smoking Status: Never Smoker Problem Qualifiers (1) Major depressive disorder: Major depression recurrence: recurrent
--- NOTE | 2017-12-24 09:27 | Discharge Instructions ---
Discharge Information Report Includes Report will include the: Discharge Instructions & Summary Admission Admission Date / Time: Dec 19, 2017 at 19:45 Reason for Admission: Major Depressive Order Discharge Discharge Diagnosis / Problem: Depression Condition at Discharge: Good Discharge Goals Goal(s): Decrease discomfort, Improve disease control Activity Recommendations Activity Limitations: resume your previous activity . Instructions / Follow-Up Instructions / Follow-Up . SPECIAL CARE INSTRUCTIONS: 1. Follow through with your scheduled aftercare appointments. If unable to keep an appointment, please call to reschedule. 2. Take your medication only as prescribed. Medication should not be changed or stopped without the approval of your doctor. In the event of worsening symptoms or concerns about side effects, contact your doctor immediately. 3. Utilize new healthy coping skills, anger management skills, and stress management skills learned during your hospitalization. Journal feelings and process them with a support person. Identify stressors or situations that may result in relapse, deterioration or inappropriate behaviors and develop a plan to deal with those issues. 4. If your coping skills are ineffective and you are in crisis, contact your outpatient providers for direction. If unable to reach your providers, please call the CAN HELP LINE AT or go to the closest Emergency Room. 5. Avoid alcohol and un-prescribed drugs. 6. You have been provided with the Mental Health Advance Directives Pamphlet for your review. AFTERCARE APPOINTMENTS: * Please call your insurance company prior to your scheduled appointment to confirm your aftercare providers are covered. Take your insurance information to your appointments. . Discharge / Aftercare Planning Primary Care Physician: Name: [facility] - Dr. Caldera Date of Appointment: Jan 08, 2018 Time of Appointment: 10:20 am Appointment Notes: [id number] [place] [place] [address] Psychiatrist: Name: Jaida richard. card , photo ID Date of Appointment: Dec 30, 2017 Time of Appointment: 2:00 pm Appointment Notes: [address] [place] [address], [place] [address] Therapist: Name Of Therapist: Jaida Steve Date of Appointment: Jan 01, 2018 Time of Appointment: 11:30 am Appointment Comments: [address] [place] [address] Law Firm Administrator: Name: n/a Other: Name of Appointment #1: [facility] Date of Appointment #1: Dec 26, 2017 Time of Appointment #1: 3:00 pm Appointment #1 Notes: [address] [facility] [place] [address] . Follow-Up Care Plan for Follow-Up Care: the patient will see both his psychiatric prescriber and his therapist next week. Current Hospital Diet Patient's current hospital diet: Regular Diet Discharge Diet Recommended Diet: Regular Diet Procedures Procedures Performed: No Pending Studies Pending Studies at Discharge: No Medical Emergencies . Who to Call and When: Medical Emergencies: For questions or emergencies related to your hospital stay, please contact the Inpatient Behavioral Health Unit at [phone]. A telephone quotation clerk is on-call 14/04 for the Behavioral Health Unit for emergencies At any time you feel your situation is an emergency, you may also call 911 immediately. . Non-Emergent Contact Non-Emergency issues call your: Psychiatrist, Therapist Past History Medical & Surgical History: (1) Hypertension Advance Directives Existing Advance Directive: No Do You Have an Existing Mental: No Existing Living Will: No Existing Power of Tank [employer] Wood: No Advance Directives Info Given: To Pt/S.O. Advance Directives Reason: Declines as Mental Health Visit. Discharge Summary Admission HPI Per the Admitting provider: Chart reviewed; patient presented to the emergency room 12/19/2017 after he told his friends that he had overdosed on amitriptyline and cough medication, per 1 note DayQuil and per another note NyQuil. He had also been drinking alcohol, at least 6 shots. His friends told hospital staff the patient had been stating that he wanted to for the last few weeks. EMS reported that he was bleeding from his mouth, and it was unclear if he had fallen. He was intoxicated on presentation, with a BAL of 102, and UDS was positive for marijuana. He was admitted to the ICU, and admitted that he had taken 10 tablets of 25 mg amitriptyline at approximately 11 PM the day prior. His mother was at the bedside and confirmed that he had been seen at [facility] by a psychologist, had no previous inpatient psychiatric hospitalizations, and has no access to firearms. He received IV fluids in the ICU, was noted to be tachycardic and hypertensive. He had an elevated anion gap and prolonged QTc. CPK was followed due to concerns for rhabdomyolysis, and increased to [address] was performed and showed no acute injuries. He was seen by the psychiatric consult service yesterday, and admitted that he had attempted suicide with his overdose. His primary stressor is his sexuality, stated he was not sure if he was homosexual or bisexual, and has not come out to anyone yet, fearing that his family will not be supportive. He continued to endorse depressed mood and suicidal thoughts, and admitted to history of 2 suicide attempts by overdose, most recently overdosing on NyQuil in November 2016. He also admitted to an increase in his alcohol intake, drinking 10 drinks 3-4 times a week. He reports being treated for depression by his PCP, and says the Elavil he overdosed on was prescribed by his PCP. He was medically cleared last evening and transferred to the behavioral health unit voluntarily. On my assessment, he reviews the events that led to his overdose, stating he had been dealing with several stressors, including finding out that a position he got on a [employer] committee was shared with someone else, which was a disappointment, and his roommates and friends making derogatory statements about him, which he states is not unusual, feeling they often make fun of him and it hurts him. There is a larger underlying stressor of his sexuality, as he identifies as sadler, but has not felt comfortable coming out to people as he fears being judged. He actually had a same sex relationship earlier in the year , but ended it when his boyfriend wanted to make the relationship public, as he did not feel ready for that. He is able to identify his primary concern, which is that people in his home town of [place] what refer to his family is "the one with the sadler son," and also concerns about his parents as they are Sabianist. He does not really have anyone that he can talk to openly about this , although he has started coming out to some of his friends and the response has been positive. The night of his overdose, he had invited people over "to get drunk," and then was thinking about his stressors and became overwhelmed. He impulsively took the amitriptyline OD, 10 tabs, with intent to , noting that he had read about tricyclic OD and knew that it could be lethal. He wrote a suicide note, but doesn't recall what it said or what exactly happened after the OD that caused his friends to become concerned. He thinks they brought him to the ER themselves, and his only communication with them was a text apologizing. He denies changes in appetite, but has been eating out a lot and has gained 20 pounds in the past year. He endorses depressed mood, states it has been worsening for months and is the worst it's ever been, rates mood a 2 out of 10. Endorses decreased interest, low energy and motivation, and has had occasional thoughts of wishing he would . He has not been sleeping enough, staying up late playing on his computer, and doesn't feel rested during the day. He reports chronic anxiety with racing thoughts, constant worry, and has always been a worrier. Denies symptoms of panic (other than 1 episode last year) , PTSD, and OCD. He denies symptoms of cintia and psychosis, other than an episode of hallucinations while under the influence of a Benadryl overdose in the past. He admits he has been using MJ and alcohol excessively and recognizes that he should not drink, stating people have told him he "gets crazy and shouldn't drink." He also notes cannabis use interferes with motivation and focus. Hospital Course (1) Suicide attempt by other psychotropic drug overdose 12/20 -QTc normalized, and CPK coming down. Encourage fluids. Attend groups and work on a discharge safety plan. Would not recommend he have access to large amounts of medications, medications that are dangerous in overdose, or guns due to the risk of suicide. 12/21 -parents confirm no access to guns. Discussed charge safety plan, and encouraged him to start working on this. 12/23 -confirmed with patient that amitriptyline has been removed (his mother took it to dispose of it). Parents are also removing alcohol from his apartment. (2) Major depressive disorder 12/20 -Psychoeducation provided about diagnosis and treatment recommendations, including antidepressant and therapy. Sertraline was helpful in the past, and he is willing to resume it. Start 25 mg daily today, and increase to 50 mg daily tomorrow. -He will need to be referred for outpatient mental health treatment. Family meeting with parents, although patient does not want to disclose his sexuality to them. -Amitriptyline discontinued due to overdose and lethality in overdose. Should explore whether this medication is still present in his apartment, and if so ensure it is disposed of prior to discharge. 12/21 -Sertraline increased to 50 mg daily. -Family meeting held with parents yesterday. -Explore ways to increase supports locally. Encouraged him to consider attending an LGBT support group on campus, and he is thinking about ways to make new friends. -Continue to attend groups and work on healthy coping skills. Refer for outpatient follow-up with a psychiatrist and therapist. 12/22 -Increase sertraline to 75mg daily, group attendance and participation, and work on discharge safety plan. Continue to explore ways to increase supports. Will need outpatient follow-up. 12/23 -Continue sertraline, groups, therapy, and working on healthy coping skills. Patient has benefited from CBT techniques to identify and challenge core beliefs. Continue to explore ways to increase his supports after discharge. Has been referred to [facility] for psychiatric follow-up, and exploring options for outpatient therapy. (3) Generalized anxiety disorder 12/20 -discussed diagnosis and treatment recommendations, including antidepressant medication and therapy. Start sertraline as above. Patient found Lorazepam 1 mg helpful, and we will place him on a brief taper here to address both anxiety and alcohol withdrawal, but advised that this would not be a good medication to take after leaving the hospital due to his addictions issues, and he expressed understanding. 12/22 -patient reports anxiety has improved significantly, so will discontinue Lorazepam, as he is also on the chlordiazepoxide taper. 12/23 -continue to work on behavioral techniques for managing anxiety; patient would like to return to regular exercise as this has been beneficial in the past. (4) Alcohol dependence 12/20 -scored on AWSS this morning, with elevated blood pressure. We will continue to treat withdrawal, and consider the need to consult the hospitalist regarding persistently elevated blood pressure, as patient notes his father was diagnosed with hypertension at a young age and started on medication. -The patient's AUDIT score suggests problematic drinking (Zone III WHO). Brief intervention was offered and accepted . Intervention was greater than 5 min in length. Brief interventions include: 1. Assess Readiness to Quit, 2. Advise: Help Patient to Reduce or Abstain from Alcohol, 3. Agree: Set Specific, Feasible Goals, 4. Assist: Anticipate barriers, Problem-Solving Solutions. Social work to 5. Arrange: Referrals to appropriate treatment. Summary of intervention: The patient is in contemplation stage with regards to transtheoretical model of change. The patient is advised to decrease alcohol consumption due to depressant effects and risk of interactions with prescription medications. The patient agreed to abstain and will be provided with recovery materials to continue to education self on how to cope with their condition without drinking. -Refer for outpatient follow-up with a therapist and psychiatrist to address both mental health issues and substance use disorders. 12/21 -appreciate Dr. Rivas's recommendations, was started on clonidine and chlordiazepoxide taper yesterday for severe hypertension and tachycardia thought possibly related to withdrawal. Cannot rule out underlying hypertension. 12/22 -continue chlordiazepoxide taper, and AWSS protocol, although he has not scored high enough to receive extra Lorazepam since 12/20/2017. 12/23 -not scoring on AWSS, so will discontinue it. Again reviewed the risks of alcohol abuse, and he is willing to abstain for the foreseeable future. Parents are removing alcohol from his apartment prior to discharge. He is following up with a psychiatrist and therapist for mental health and substance abuse treatment. (5) Cannabis abuse 12/20 -reviewed risks of ongoing cannabis use and recommendations for abstinence. Refer for outpatient treatment as above. 12/23 -again reviewed risks of regular cannabis use and recommendations for abstinence for the foreseeable future. He has been referred for outpatient follow-up with a psychiatrist and a therapist for both mental health and substance abuse treatment. (6) Hypertension 12/22 -spoke with Dr. Mckenzie to review the case and continued elevated BP, on clonidine and received an extra dose yesterday; appreciate his recommendations. Questioning underlying hypertension, as patient remains hypertensive despite treatment of alcohol withdrawal and significant improvement in anxiety. Patient will need to follow up with his PCP for ongoing management post discharge. He would like a new PCP, social work specialist to make referral. 12/23 -appreciate Dr. Mckenzie's recommendations; clonidine discontinued and started on lisinopril 20 mg daily. Blood pressure improved and within normal limits today. He willing to follow up with PCP for blood pressure monitoring and to recheck potassium. He would like to be referred to a male PCP in the community. Risk Factors Assessment Male: Yes : Yes /single/: Yes Higher / Fall in social status: No Health problems: Yes Mental Health Diagnoses: Yes Substance use disorders: Yes Previous attempt: Yes Previous attempt; didn't tell: Yes Family history of suicide: No Previous psychiatric stay: No Smoker: No Protective Factors Assessment Samaritan beliefs: No : No Responsible for young children: No Employed: Yes Supportive family: Yes Day of Discharge Assessment COURSE OF HOSPITALIZATION: The patient was on her unit for 5 days. He was initially admitted to the medical floor following an intentional tricyclic overdose. His primary stress is that of his sexuality, not having "come out of the closet" to family and friends. His family was involved in his stay, participated in family meeting. Mother had relate to social work that she had suspicions he was dealing with issues of sexuality, but the patient declined to talk directly with mother about that. He did talk about the stress he feels being treated differently by his peers. He plans to return to [employer] this semester and then for the summer will work at [employer] going back and forth between home and [employer]. He denied having any further suicidal ideation during his stay. He was stabilized on medications and experienced no side effects. He was able to work on a safety plan which ultimately includes returning to the emergency department in the event of suicidality or serious worsening of his condition. He requested discharge today. TRANSITION OF CARE: I have personally reviewed the patient's aftercare appointments and medications. I have counseled him to keep all appointments as scheduled, and not alter his medications without talking with his outpatient providers. DAY OF DISCHARGE ASSESSMENT: The patient is requesting discharge today. He continues to deny suicidal homicidal ideation. He will have appointments with both his therapist and his prescriber next week and says that he feels ready to go. He says he has a safety plan ready, will return to school and work. His parents will be able to pick him up today. Today the patient is casually and appropriately dressed and groomed. Eye contact is good. Gait and station are within normal limits. Speech is of normal rate volume and tone. Affect is smiling. Thoughts are organized, goal-directed, and without evidence of thought disorder. Recent and remote memory are intact per conversation. Intelligence is estimated to be average. Insight and judgment are improved over admission. Laboratory Test 3/31/18 06:39 Total Creatine Kinase 1619 Total Time Total Time Spent (min): Greater than 30 minutes Total Time Included: examination of the patient, discharge planning, medication reconciliation, communication with other providers Tobacco Cessation at Discharge Smoking Status: Never Smoker FDA approved Prescription: non-smoker Problem Qualifiers (1) Major depressive disorder: Major depression recurrence: recurrent
== END 2017-12-24 11:14 | disposition home or self-care (01) | DRG 885 ==
LOC: C.MHU 19:45
PROVIDERS: ADMIT Psychiatry & Neurology Psychiatry; ATTEND Psychiatry & Neurology Psychiatry
DX: F33.9 Major depressive disorder, recurrent, unspecified (principal); R45.851 Suicidal ideations; F10.239 Alcohol dependence with withdrawal, unspecified; I10 Essential (primary) hypertension; R00.0 Tachycardia, unspecified; F41.1 Generalized anxiety disorder; F12.10 Cannabis abuse, uncomplicated; Z91.5 Personal history of self-harm; Z81.8 Family history of other mental and behavioral disorders; Z82.49 Family history of ischemic heart disease and other diseases of the circulatory system; Z80.0 Family history of malignant neoplasm of digestive organs; Z83.49 Family history of other endocrine, nutritional and metabolic diseases